=== PATIENT | male | born 1930 | race Caucasian/White ===

== ENCOUNTER 2017-08-31 01:00 | Inpatient (IN) | payer OTHER ==
[~2017-08-31] VITALS: Ht 170.2 cm; Wt 66.4 kg
[2017-08-31] VITALS (24 sets, daily range): BP systolic 67–146; BP diastolic 47–75
[2017-08-31] MEDS ORDERED: POTA10LI10 PO (01:12)
[2017-08-31] MEDS ORDERED: ATOR1TAB19 PO (01:12)
[2017-08-31] MEDS ORDERED: WARF05TA GT (01:12)
[2017-08-31] MEDS ORDERED: AMLO25TA PO (01:12)
[2017-08-31 01:32] LABS: BASO % 0.1 % (0.0-1.0); EOS % 0.1 % (0.0-3.0); IMMATURE GRANULOCYTE % 0.5 % (0-0); LYMPH # 0.6 10^3/uL (1.5-4.5); LYMPH % 4.4 % (24.0-44.0); MEAN CORPUSCULAR HEMOGLOBIN 31.1 pg (27.0-33.0); MEAN CORPUSCULAR HGB CONC 33.4 g/dl (32.0-36.5); MEAN CORPUSCULAR VOLUME 93.2 fl (80.0-96.0); MONO # 1.3 10^3/uL (0.0-0.8); MONO % 9.5 % (0.0-5.0); NEUTROPHILS # 11.4 10^3/uL (1.8-7.7); NEUTROPHILS % 85.4 % (36.0-66.0); PLATELET COUNT, AUTOMATED 120 10^3/uL (150-450); RED CELL DISTRIBUTION WIDTH 15.9 % (11.5-14.5); WHITE BLOOD COUNT 13.3 10^3/uL (4.0-10.0)
[2017-08-31 01:56] LABS: INR 2.75
[2017-08-31 02:11] LABS: ALBUMIN 2.9 GM/DL (3.2-5.2); ALBUMIN/GLOBULIN RATIO 0.83 (1.00-1.93); ALKALINE PHOSPHATASE 70 U/L (45-117); ALT/SGPT 29 U/L (12-78); ANION GAP 10 MEQ/L (8-16); AST/SGOT 79 U/L (7-37); BILIRUBIN,DIRECT 0.4 MG/DL (0.0-0.2); BILIRUBIN,TOTAL 1.1 MG/DL (0.2-1.0); BLOOD UREA NITROGEN 59 MG/DL (7-18); CARBON DIOXIDE LEVEL 22 MEQ/L (21-32); CHLORIDE LEVEL 110 MEQ/L (98-107); CREATININE FOR GFR 4.22 MG/DL (0.70-1.30); GLOMERULAR FILTRATION RATE 14.4 (>35); GLUCOSE, FASTING 104 MG/DL (83-110); SODIUM LEVEL 142 MEQ/L (136-145); T UPTAKE 35 % (33-40); TOTAL PROTEIN 6.4 GM/DL (6.4-8.2)
[2017-08-31] MEDS ORDERED: AMLO5TAB2 PO ×2 (02:15→03:12)
[2017-08-31] MEDS ORDERED: ATOR40TA75 PO ×2 (02:15→03:12)
[2017-08-31] MEDS ORDERED: VITA1CAP40 PO ×2 (02:15→03:12)
[2017-08-31] MEDS ORDERED: COUM2.5T17 PO (02:15)
[2017-08-31] MEDS ORDERED: CORE12.5 PO (02:15)
[2017-08-31] MEDS ORDERED: POTA20TA6 PO (02:15)
[2017-08-31 02:26] LABS: ABG PARTIAL PRESSURE CO2 26.5 mmHg (35.0-45.0); ABG PARTIAL PRESSURE O2 83.2 mmHg (75.0-100.0); ABG STANDARD HCO3 19.5 MEQ/L (22.0-26.0); ABG TOTAL CO2 17.8 MEQ/L (23.0-31.0); ABG pH (ARTERIAL) 7.425 UNITS (7.350-7.450)
[2017-08-31 02:27] LABS: POTASSIUM SERUM 5.5 MEQ/L (3.5-5.1)
[2017-08-31] MEDS ORDERED: NS 500 ML IV ONE ×2 (02:30→12:30)
[2017-08-31] MEDS ORDERED: SOD POLYSTYRENE SULFONATE SUSP 15 GM/60 ML UD PO ONE (02:45)
[2017-08-31] MEDS ORDERED: SOD POLYSTYRENE SULFONATE SUSP 30 GM/120 ML ENEMA PR ONE (03:00)
[2017-08-31] MEDS ORDERED: SOD POLYSTYRENE SULFONATE SUSP 15 GM/60 ML UD PR ONE (03:00)
--- NOTE | 2017-08-31 03:10 | REPUSA ---
CLINICAL HISTORY: Headache. TECHNIQUE: Multiple axial CT images were obtained through the brain without IV contrast material. COMMENTS: There is normal configuration of sella turcica. There are no intra or extra-axial collections. There is no mass effect or midline shift. There is no evidence of hematoma formation. No hydrocephalus is p resent. The ventricles are symmetrical. No abnormal calcifications are present. There is diffuse age-appropriate cerebellar and cerebral atrophy with proportionally dilated ventricl es and cortical sulci. There are bilateral periventricular and subcortical white matter hypolucencies compatible with mild c hronic microvascular disease. Otherwise, no significant focal abnormalities are seen either in the posterior fossa or supratentoria l compartment. IMPRESSION: 1. Age-appropriate cerebellar and cerebral atrophy. 2. Mild chronic microvascular disease. 3. No evidence of acute intracranial pathology. Thank you for your kind referral of this patient.
[2017-08-31] MEDS ORDERED: CARV12.5 PO (03:12)
[2017-08-31] MEDS ORDERED: POTA20TA PO (03:12)
[2017-08-31] MEDS ORDERED: WARF-23 PO (03:12)
[2017-08-31] MEDS ORDERED: PATIENT COMMENT (03:16)
[2017-08-31] MEDS ORDERED: ONDANSETRON 4MG/2ML VIAL (J2405) IV PRN (03:30)
--- NOTE | 2017-08-31 04:02 | HPEPDOC ---
[facility] Medical History & Physical Date of Admission Aug 31, 2017 Primary Care Physician: A Other Provider Dr. Sanjuana Brown ([place], [place]) Attending Physician: JAMIA RAMÍREZ MD History and Physical CHIEF COMPLAINT: altered mentation HISTORY OF PRESENT ILLNESS: [87 yo male presented to ED with altered mentation. Was down at home for unkown period of time. Lethargic and unable to get a detailed history. Unable to reach family member. Bedbugs noted at the time of his emergency room admission. According to ED staff he was found down at home by unresponsive. Pressures have been fine, finger stick blood sugar unremarkable. EtoH negative. He does appear dehydrated with elevated creatinine, some Rhabdomyolysis and lactic acidosis. Head CT reportedly negative. Hospitalist was called for admission. PAST MEDICAL HISTORY: Afib Hypertension Vitamin D def Hypokalemia Cataracts with prior surgery PAST SURGICAL HISTORY: Cataract surgery, rest is unable to ascertain SOCIAL HISTORY: ( was unavailable for history) FAMILY HISTORY: unsure ALLERGIES: Please see below. REVIEW OF SYSTEMS: unable to ascertain do to lethargy HOME MEDICATIONS: Please see below. PHYSICAL EXAMINATION: VITAL SIGNS: See below GENERAL APPEARANCE: lethargic but responded to sternal rub and says "leave me alone, don't do that". HEENT: PERRLA, however, there is some discrepancy between the pupillary size Right to left, may be related to prior cataract surgery. Throat clear. Neck supple, no JVD. CARDIOVASCULAR: Regular rate and rhythm. LUNGS: Clear to auscultation. ABDOMEN: Soft, nontender, nondistended, positive bowel sounds, masses or rebound. MUSCULOSKELETAL: No gross deformities. EXTREMITIES: No edema, no calf tenderness. NEUROLOGICAL: Unable to assess cranial nerves due to lethargy. Reflexes otherwise appear to be bilateral and normal. Babinski responses bilaterally. Skin: He has some excoriations with alert extremities and bedbugs have been noted. LABORATORY DATA: See below. IMAGING: Head CT noncontrast: 1. Age-appropriate cerebellar and cerebral atrophy. 2. Mild chronic microvascular disease. 3. No evidence of acute intracranial pathology. Chest x-ray: No infiltrate, no consolidation. However, some question to scarring versus pneumothorax of the right upper lobe. Chest CT is pending MICROBIOLOGY: Please see below. Impression: 87-year-old male presents to the emergency department with altered mental status, acute kidney injury, hyperkalemia, rhabdomyolysis, will need IV fluids. Further workup regarding his metabolic encephalopathy. His head CT is negative. CT of the chest is pending. No definitive signs of infection. However , would like to check a urinalysis. Problem list: 1.Metabolic Encephalopathy 2.Acute kidney injury. 3.Hyperkalemia. 4.Rhabdomyolysis. 5.Lactic acidosis. 6.Bed bugs 7.Afib 8.Hypertension 9.Vitamin D def 10.Hypokalemia 11.Cataracts with prior surgery Plan: Patient will be admitted PCU. Continue on telemetry. IV fluids FOR Acute kidney injury and avoid nephrotoxic drugs. Check renal ultrasound and serum/ urine osmolality and urine sodium to calculate FeNa. Repeat labs in the morning. Cycle cardiac enzymes. Check urinalysis, possibly urine culture, blood cultures. He does not have any records in the electronic medical records. And there is questions whether or not his right upper lobe on chest x-ray may demonstrate scarring versus pneumothorax. Check a stat CT without contrast. May need consider nephrology consult in the morning. DVT prophylaxis: He is therapeutic on Coumadin. Disposition: Anticipate he'll be here greater than 2 midnights Addendum: Chest CT without contrast demonstrates a moderate right sided pneumothorax with small right pleural effusion. Mild emphysematous bullae noted , perhaps cause of spontaneous pneumothorax. No rib fractures or signs of chest wall trauma. Patient currently hemodynamically stable, normal ABG and now on room air.Will consult with pulmonology/Critical Care team. Vital Signs Vital Signs Date Time Temp Pulse Resp B/P (MAP) Pulse Ox O2 Delivery O2 Flow Rate FiO2 08/31/17 02:12 08/31/17 02:12 Non-Rebreather 10.0 08/31/17 02:03 99.1 34 08/31/17 01:43 88 100 Laboratory Data Labs 24H Laboratory Tests 2 08/31/17 01:15: Immature Granulocyte % (Auto) 0.5H, White Blood Count 13.3H, Red Blood Count 3.66L, Hemoglobin 11.4L, Hematocrit 34.1L, Mean Corpuscular Volume 93.2, Mean Corpuscular Hemoglobin 31.1, Mean Corpuscular Hemoglobin Concent 33.4, Red Cell Distribution Width 15.9H, Platelet Count 120L, Neutrophils (%) (Auto) 85.4H, Lymphocytes (%) (Auto) 4.4L, Monocytes (%) (Auto) 9.5H, Eosinophils (%) (Auto) 0.1, Basophils (%) (Auto) 0.1, Neutrophils # (Auto) 11.4H, Lymphocytes # (Auto) 0.6L, Monocytes # (Auto) 1.3H, Eosinophils # (Auto) 0.0, Basophils # (Auto) 0.0 , Immature Granulocyte # (Auto) 0.1H, Nucleated Red Blood Cells % (auto) 0.0, Prothrombin Time 30.2H, Prothromb Time International Ratio 2.75, Activated Partial Thromboplast Time 49.0H, Anion Gap 10, Glomerular Filtration Rate 14.4L , Lactic Acid Level 2.9*H, Calcium Level 9.0, Aspartate Amino Transf (AST/SGOT) 79H, Alanine Aminotransferase (ALT/SGPT) 29, Alkaline Phosphatase 70, Total Bilirubin 1.1H, Direct Bilirubin 0.4H, Ammonia 29, Total Creatine Kinase 969H, Total Protein 6.4, Albumin 2.9L, Albumin/Globulin Ratio 0.83L, Thyroid Stimulating Hormone (TSH) 2.910, Free Thyroxine Index 2.8, Thyroxine (T4) 8.0, Triiodothyronine (T3) Uptake 35, Ethyl Alcohol Level < 0.003 08/31/17 02:03: Blood Gas Bicarbonate Standard 19.5L, Arterial Blood pH 7.425, Arterial Blood Partial Pressure CO2 26.5L, Arterial Blood Partial Pressure O2 83.2, Arterial Blood Total CO2 17.8L, Arterial Blood HCO3 17.0L, Arterial Blood Base Excess - 6.0L, Arterial Blood Oxygen Saturation 96.1 CBC/BMP Laboratory Tests 08/31/17 01:15 Red Blood Count 3.66 L, Mean Corpuscular Volume 93.2, Mean Corpuscular Hemoglobin 31.1, Mean Corpuscular Hemoglobin Concent 33.4, Red Cell Distribution Width 15.9 H, Neutrophils (%) (Auto) 85.4 H, Lymphocytes (%) (Auto ) 4.4 L, Monocytes (%) (Auto) 9.5 H, Eosinophils (%) (Auto) 0.1, Basophils (%) ( Auto) 0.1, Neutrophils # (Auto) 11.4 H, Lymphocytes # (Auto) 0.6 L, Monocytes # (Auto) 1.3 H, Eosinophils # (Auto) 0.0, Basophils # (Auto) 0.0 Home Medications Scheduled Amlodipine Besylate (Amlodipine Besylate) 5 Mg Tab, 5 MG PO DAILY Atorvastatin Calcium (Atorvastatin Calcium) 40 Mg Tab, 40 MG PO QHS Carvedilol (Carvedilol) 12.5 Mg Tab, 12.5 MG PO BID Ergocalciferol (Vitamin D) 50,000 Unit Cap, 50,000 UNIT PO ASDIRECTED TAKES ON SUNDAY MORNINGS Potassium Chloride (Klor-Con M20) 20 Meq Tabcr, 20 MEQ PO DAILY Warfarin Sod (Warfarin Sodium) 5 Mg Tab, 5 MG PO ASDIRECTED TAKES ON MONDAYS AND WEDNESDAYS at 1900 Warfarin Sod (Warfarin Sodium) 5 Mg Tab, 2.5 MG PO ASDIRECTED TAKES ON SUNDAYS, TUESDAYS, THURSDAYS, FRIDAYS AND SATURDAYS AT 1900 Scheduled PRN Albuterol Sulfate (Albuterol Sulfate) 2.5 Mg/3 Ml Nebu, 2.5 MG INH QID PRN for SHORTNESS OF BREATH Allergies Coded Allergies: No Known Allergies (Unverified , 08/31/17) FABIOLA SANCHEZ DO Aug 31, 2017 04:02
[2017-08-31 04:32] LABS: OSMOLALITY SERUM 317 MOSM/KG (280-301)
--- NOTE | 2017-08-31 04:40 | REPUSA ---
CLINICAL HISTORY: Pneumothorax. TECHNIQUE: Multiple axial CT images were obtained through the thorax without IV contrast material. COMMENTS: Moderate right pneumothorax. 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 Small right pleural effusion. Passive atelectatic airspace disease of the right lung. Bilateral basilar atelectatic pulmonary changes. Bilateral apical emphysematous pulmonary changes. There is no evidence of pleural or parenchymal-based mass. There is no evidence of hilar or mediastinal lymphadenopathy. The heart and great vessels are within normal limits. Gallstone is seen. There is bilateral peribronchial interstitial thickening suggestive of bronchitis. The visualized portions of the liver are of uniform attenuation without mass or defect. There is no i ntra or extrahepatic biliary ductal dilatation. The spleen is unremarkable. The visualized pancreas i s of normal contour and attenuation characteristics. There is no evidence of adrenal mass. The visual ized portions of the kidneys present no abnormalities. The bony structures are free of lytic or blastic lesions. IMPRESSION: Moderate right pneumothorax. Small right pleural effusion. Thank you for your kind referral of this patient.
[2017-08-31] MEDS: NS 1,000 ML IV SCH ×2 (05:00→10:03)
[2017-08-31] MEDS ORDERED: HEPARIN SOD (PORCINE) 5000 UNITS/ML VIAL SC SCH (06:00)
[2017-08-31] MEDS ORDERED: ALBU83IN INH (06:01)
[2017-08-31 06:08] LABS: CALCIUM OXALATE CRYSTALS SMALL
[2017-08-31] MEDS ORDERED: NS 1,000 ML IV ONE (06:45)
[2017-08-31] MEDS ORDERED: cefTRIAXone SOD 2 GM in D5W 50 ML IV SCH (07:00)
--- NOTE | 2017-08-31 07:42 | CCN ---
DATE OF SERVICE: 08/31/2017 Critical care time was 1 hour. This excludes all procedures. I was called by Dr. Barnes to see the patient in the intensive care unit for a pneumothorax. He had altered mental status, was found down for an unknown reason. On my arrival, the patient was awake, he could mumble, but was unable to give me any significant history. He has presumed metabolic encephalopathy with uremia. He has relative hypotension with a systolic blood pressure of 102 on my arrival to the room. I have asked him if he is able to eat at home, and he said "yes". I have asked him if he is coughing at home. He said "yes". All other speech is unintelligible. is unable to provide any history. History obtained from chart and admitting physician. Apparently, the patient was found down in his own feces, had elevated CK, no significant EKG abnormalities, and appears to be either spontaneous or traumatic pneumothorax on the right. PHYSICAL EXAMINATION: The patient is mostly hypothermic, temperature is 97.9 on my arrival to the room , pulse is 83, oxygen saturation is 94% on 2 liters. Respiratory rate of approximately 18-20. Blood pressure is 120/51 and its max most recently 102/48. GENERAL: The patient is laying in bed, sleepy at times, easily arousable to voice, unkempt with obvious hygiene neglect. HEENT: Sclera clear and anicteric. There is a pupillary defect on the right, which is chronic with some opacification. 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 Left eye reactive. Mucous membranes are dry. Tongue is midline. Oropharynx without erythema or exudate. Neck is supple. No tracheal deviation or mass. LYMPH: No cervical, supraclavicular, or axillary adenopathy. CARDIAC: Regular S1-S2. Currently he is paced with pacer in the left anterior chest wall without any surrounding erythema or exudate. PULMONARY: Decreased breath sounds throughout without rales, rhonchi or wheezes ; however, I hear good air entry on the right. No dullness to percussion. No accessory muscle use. He is barrel-chested. ABDOMEN: Scaphoid. No significant hepatosplenomegaly. No masses or hernia. EXTREMITIES: Significant muscle wasting. No cyanosis, clubbing or edema. SKIN: Some chronic venous stasis changes of the lower extremities, right greater than left. No rashes or jaundice. There is multiple excoriations. MUSCULOSKELETAL: Significant muscle wasting as mentioned above. No evidence of unilateral weakness. Laboratory evaluation shows a sodium of 142, potassium 5.5, chloride 110, bicarb of 22, BUN of 59, creatinine of 4.2 with a lactate of 2.9. Arterial blood gas shows a pH 7.43, pCO2 of 27, PaO2 of 83. White blood cell count is 13.3, hemoglobin 11.4, hematocrit 34.1, platelet count of 120 with an albumin of 2.9, CK is 969, INR is 2.75. EKG shows frequent PVCs, nonspecific ST abnormalities without any significant hyperacute ST segments. No signs of new myocardial infarction. Chest x-ray shows a pneumothorax on the right. Chest CT performed at 4:30 this morning shows a right pneumothorax and ascending aneurysm measuring 4.3 cm. There is dependant right infiltrate and on the right there is a pleural effusion and associated rib fracture. There is significant emphysema throughout both lung enriquez. Of note, on the chest CT the heart border is actually shifted to the side of the pneumothorax. Therefore, no significant tension. Pneumothorax remains mild to moderate on chest x-ray at 06:12 this morning. IMPRESSION: 1. Pneumothorax. I am not clear whether this was traumatic or spontaneous. There is associated dependent atelectasis versus infiltrate on the right lower lobe. There does appear to be a fairly flat level, which would suggest fluid possibly blood. There is associated rib fracture therefore I am favoring traumatic pneumothorax. Will continue to monitor. If there is no significant improvement, will consider placement of chest tube. At this point in time, the patient is on oxygen to help resorb the pneumothorax. No evidence of midline shift, in fact, it is the exact opposite, there is shifting of the cardiac silhouette to the right. 2. Dependent infiltrate with leukocytosis. Would consider the possibility of pneumonia and I have placed the patient on a ceftriaxone and azithromycin. 3. Renal failure. I have given the patient extra fluid due to his relative hypotension and elevated CK, which is likely from rhabdomyolysis from being down. 4. Relative hypotension. I have stopped his Norvasc and will continue to monitor. Will obtain a echocardiogram to look at cardiac output and also to evaluate for potential wall motion abnormalities. Monitor h/h for blood loss into chest cavity. 5. Severe hypoalbuminemia, probable chronic malnourishment. I have added thiamine. Will encourage p.o. intake when patient is less encephalopathic. A banana bag was ordered. 6. Found down for an unknown reason. Would continue to evaluate potential causes of his potential loss of consciousness, closely monitor for ventricular arrhythmias, hence the reason for the echocardiogram above. 7. Chronic anticoagulation high risk of bleeding. Will continue to monitor. At this point in time, would not add additional heparin onto his current Coumadin as his INR is at 2.75. I have therefore discontinued his heparin. 8. GI prophylaxis with Protonix until he is able to eat. Thank you for this consultation. Will continue to follow. BIBIANA
[2017-08-31 07:47] LABS: ALBUMIN 2.7 GM/DL (3.2-5.2); CALCIUM LEVEL 8.6 MG/DL (8.8-10.2); CREATININE FOR GFR 3.78 MG/DL (0.70-1.30); GLOMERULAR FILTRATION RATE 16.3 (>35); PHOSPHORUS LEVEL 4.9 MG/DL (2.5-4.9); POTASSIUM SERUM 5.1 MEQ/L (3.5-5.1)
--- NOTE | 2017-08-31 07:49 | REP ---
Portable chest, 01:37 a.m., single AP view, patient sitting: There are no comparisons. Lung enriquez are hyperinflated. There is a focal density above the right hemidiaphragm, acute versus chronic. Cardiac size is normal. The thoracic aorta is tortuous and possibly aneurysmal. Mediastinum and bony thorax unremarkable. There is a dual-chamber pacemaker. Impression: Hyperinflation. Focal density above the right hemidiaphragm, acute versus chronic. Tortuous thoracic aorta, possibly aneurysmal. Signed by Mehrdad Briscoe MD 08/31/2017 07:40 A
--- NOTE | 2017-08-31 07:51 | REP ---
Portable chest, 06:12 a.m., single AP view, patient sitting: Comparison is from 01:37 a.m. The density above the right hemidiaphragm has increased compatible with developing infiltrate. Otherwise, there is no interval change. Signed by Mehrdad Briscoe MD 08/31/2017 07:42 A
[2017-08-31 08:43] LABS: MAGNESIUM LEVEL 2.1 MG/DL (1.8-2.4)
[2017-08-31] MEDS: AZITHROMYCIN INJ 500 MG, VIAL MATE ADAPTER 1 EACH in D5W 250 ML IV SCH (08:45)
[2017-08-31] MEDS ORDERED: CARVedilol 12.5 MG TAB PO SCH (09:00)
[2017-08-31] MEDS ORDERED: MULTIVITAMIN -ADULT INJECTION 10 ML, THIAMINE INJection 100 MG, FOLIC ACID 1 MG in NS 1... IV ONE (09:00)
[2017-08-31] MEDS ORDERED: amLODIPine 5 MG TAB PO SCH (09:00)
[2017-08-31] MEDS ORDERED: ATORVASTATIN 20 MG TAB PO SCH (09:00)
[2017-08-31] MEDS: DOCUSATE SODIUM 100 MG CAP PO SCH ×2 (09:08→21:00)
[2017-08-31] MEDS ORDERED: D5W/0.9% SODIUM CHLORIDE 1,000 ML IV SCH (11:00)
[2017-08-31] MEDS: PIPERACILLIN/TAZOBACTAM SOD 2.25 GM in D5W 50 ML IV SCH ×2 (13:06→22:07)
--- NOTE | 2017-08-31 13:23 | CR ---
DATE OF CONSULTATION: 08/31/2017 REQUESTING PHYSICIAN: Dr. Vinny Martinez CONSULTING PHYSICIAN: Dr. Arevalo REASON FOR CONSULTATION: Acute renal failure. Hyperkalemia. Rhabdomyolysis. CHIEF COMPLAINT: The patient was brought to the emergency room with metabolic encephalopathy. NOTE: History was obtained from patient's chart and from the medical team. The patient was unable to provide any reliable history. HISTORY OF PRESENT ILLNESS: Mr. Catrachito Richards is an 87-year-old male with past medical history of hypertension, history of atrial fibrillation, pacemaker placement in the past, who was brought to the emergency room with confusion, altered mental status. He was found at his home for an unknown period of time. He was down on the floor. He was lethargic. He was unable to get up from the floor. As reported in documentation, the patient was found in his own urine and feces and he was also found to have bed bugs on arrival in the emergency room. The patient was found to be severely dehydrated with volume depletion, acute renal failure, along with hyperkalemia and evidence of rhabdomyolysis with a CPK level of 969. The patient also had lactic acidosis on arrival. He was oliguric. I saw and examined the patient today morning in the intensive care unit (ICU). He has received IV fluid boluses. The patient is slightly more awake. He was oriented times one. He was able to follow some commands. PAST MEDICAL HISTORY: As reported in documentation, the patient has history of hypertension, atrial fibrillation. PAST SURGICAL HISTORY: Patient has history of cataract surgery in the past. Patient has a pacemaker. The rest of the surgical history I was unable to obtain. ALLERGIES: No known drug allergies. FAMILY HISTORY: Unknown family history at this time. SOCIAL HISTORY: The patient lives at home with his . His is also very debilitated. There is no history of illicit drug abuse or alcohol abuse. REVIEW OF SYSTEMS: I was unable to get any reliable review of systems from the patient who was very obtunded and lethargic, only knows his name at this time, but he was not in any apparent respiratory distress. PHYSICAL EXAMINATION: GENERAL: The patient is obtunded, but arousable. He is oriented times one. Follows some commands. VITAL SIGNS: Temperature 98.9 degrees Fahrenheit. Blood pressure 103/66. Pulse 74. Respiratory rate 21. Saturating 97% on 4 liters nasal cannula. INTAKE AND OUTPUT: Urine output recorded so far is 90 mL since overnight. HEAD AND NECK EXAM: Patient's eyes are closed. He is blind of right eye with fibrosis. Mucous membranes are dry. Neck is supple. There is no jugular venous distention (JVD). CARDIOVASCULAR: S1, S2, irregularly irregular. He has a paced rhythm. RESPIRATORY: Chest is clear to auscultation bilaterally. Bilateral equal air entry. No rales or rhonchi. ABDOMEN: Soft. Positive bowel sounds. Nontender. No ascites. No organomegaly. GENITOURINARY: Patient has an indwelling Licona catheter at this time. I see some urine coming out in the Licona tube now which is pale yellow in color. MUSCULOSKELETAL: No clubbing or cyanosis. Pulses are 2+. No edema of the extremities. The patient does have some erythema of the left leg. CENTRAL NERVOUS SYSTEM: Patient is oriented times one. Follows some commands. He is currently obtunded and has some metabolic encephalopathy. LAB REVIEW: CBC showed a WBC of 13.3, hemoglobin 11.4 and platelets of 120. INR is 2.7. Urinalysis showed it was cloudy with 2+ protein, 3+ blood, some ketones , amorphous sediment in the urine. ABG done today morning showed a pH of 7.4, pcO2 of 26, pO2 83, bicarbonate 17, oxygen saturation 96%. BMP today morning showed sodium 146, potassium 5.1, chloride 114, bicarbonate 19, BUN 65, creatinine 3.7, lactic acid 2.5, calcium 8.6, albumin 2.7, CK-MB has decreased to 832, troponin 0.11. Toxicology showed ethyl alcohol level was negative. MICROBIOLOGY: Urine culture is pending. IMAGING: CT of chest showed moderate right pneumothorax, small right pleural effusion. CT scan of the head showed age appropriate cerebellar and cerebral atrophy. CURRENT INPATIENT MEDICATIONS: Patient's medications are all reviewed by me. He is on banana bag and he has been started on D5 1/2 normal saline at 80 mL/hr. He is on empiric Zosyn 2.25 grams IV every 8 hours and Zithromax 500 mg every 24 hours. I have stopped the amlodipine and Coreg at this time. Statin was also stopped because of rhabdomyolysis. The patient got a dose of Kayexalate overnight. He is on Coumadin 5 mg on Sunday and Sunday and 2.5 mg on rest of the days. ASSESSMENT: 87-year-old male with past medical history of hypertension, atrial fibrillation, status post pacemaker admitted to the ICU at this time because of metabolic encephalopathy, right sided pneumothorax, acute renal failure, hyperkalemia, and systemic inflammatory response syndrome. PLAN: 1. Systemic inflammatory response syndrome. Patient has leukocytosis, lactic acidosis. He was found in his urine and feces. Continue the empiric IV antibiotic coverage. Dose is adequate for acute renal failure. Continue aggressive IV fluid hydration. Monitor intake and output. 2. Acute renal failure. Most likely secondary to systemic inflammatory response syndrome (SARS),dehydration and Volume depletion. Continue aggressive IV fluid hydration. Patient's urine output is improving now. No need of hemodialysis at this time. Electrolytes are within the acceptable limits. 3. Hyperkalemia. Patient was already given Kayexalate overnight. Potassium level is 5.1 which is acceptable. No need of further Kayexalate administration. Improvement in renal function and IV fluid hydration will further help improve hyperkalemia. 4. Hypernatremia. It is secondary to aggressive fluid hydration with normal saline. IV fluids have already been changed to D5 1/2 normal saline. Sodium level is expected to improve with 1/2 normal saline. 5. Metabolic acidosis. Metabolic acidosis is secondary to acute renal failure. Bicarbonate level is 19. No need of IV bicarbonate administration at this time. Acidosis is expected to improve with improvement in renal function and once the lactic acid improves. 6. Rhabdomyolysis. Patient has mild elevation of CPK. It is secondary to fall. Patient was on the floor for many hours. Continue IV fluid hydration. CPK level is coming down. Avoid statins at this time. 7. Protein calorie malnutrition. Patient's albumin level is 2.7. Continue IV D5. Once the patient is awake and alert, he can be started on oral feeds. 8. History of chronic atrial fibrillation. Patient has a paced rhythm at this time. INR is therapeutic at 2.7. Continue home dose of Coumadin. Thank you for involving us in the care of this patient. We shall be happy to follow the patient along with you tomorrow morning. MTDD
[2017-08-31 13:56] LABS: ALBUMIN 2.4 GM/DL (3.2-5.2); CALCIUM LEVEL 8.6 MG/DL (8.8-10.2); CREATININE FOR GFR 3.4 MG/DL (0.70-1.30); GLOMERULAR FILTRATION RATE 18.4 (>35); PHOSPHORUS LEVEL 4.5 MG/DL (2.5-4.9); POTASSIUM SERUM 4.4 MEQ/L (3.5-5.1)
[2017-08-31] MEDS ORDERED: WARFARIN SOD 2.5 MG TAB PO SCH (17:00)
[2017-08-31] MEDS: WARFARIN SOD 2.5 MG TAB PO SCH (18:04)
[2017-08-31] MEDS: D5W/0.45% SODIUM CHLORIDE 1,000 ML IV SCH (23:30)
[2017-09-01] VITALS (19 sets, daily range): BP systolic 86–150; BP diastolic 56–84
[2017-09-01 05:08] LABS: MEAN CORPUSCULAR HEMOGLOBIN 30.3 pg (27.0-33.0); MEAN CORPUSCULAR HGB CONC 33.1 g/dl (32.0-36.5); MEAN CORPUSCULAR VOLUME 91.5 fl (80.0-96.0); PLATELET COUNT, AUTOMATED 103 10^3/uL (150-450); RED CELL DISTRIBUTION WIDTH 16.2 % (11.5-14.5); WHITE BLOOD COUNT 8.1 10^3/uL (4.0-10.0)
[2017-09-01 05:21] LABS: INR 2.52
[2017-09-01 05:29] LABS: ALBUMIN 2.4 GM/DL (3.2-5.2); CREATININE FOR GFR 2.61 MG/DL (0.70-1.30); POTASSIUM SERUM 3.8 MEQ/L (3.5-5.1)
[2017-09-01] MEDS: PIPERACILLIN/TAZOBACTAM SOD 2.25 GM in D5W 50 ML IV SCH ×3 (05:58→22:02)
--- NOTE | 2017-09-01 06:41 | ECGEPIP ---
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
--- NOTE | 2017-09-01 07:46 | ECHO ---
DATE OF PROCEDURE: 08/31/2017 AGE: 87 GENDER: Male REFERRING PHYSICIAN: Dr. Parrish. HEIGHT: 67 inches. WEIGHT: 134 pounds. BODY SURFACE AREA: 1.71 sq m. INPATIENT: Intensive care unit (ICU) Room 3201. INDICATION: Abnormal EKG. MEASUREMENTS: 2D MEASUREMENTS: RV - 4.0 cm LV- 4.6 cm Septum - 1.1 cm Posterior wall - 1.0 cm Aortic root - 3.7 cm LA - 3.2 cm LVEF - 65% DOPPLER MEASUREMENTS: AV - 1.0 m/s LVOT - 0.8 m/s LVOT diameter - 2.3 cm MV-E: 49 A: 75 EA ratio 0.7 Early mitral deacceleration time - 285 ms RVSP - 38 mmHg IVC - 1.9 cm COMMENTS: Normal sinus rhythm with narrow QRS complexes alternating with ventricular paced beats with left bundle branch block QRS configuration. Technically challenging study in light of the patient's body habitus but some diagnostically useful information was still obtained. Normal cardiac chamber sizes. Normal LV wall thickness. On real-time imaging from the parasternal and apical projections, wall motion was symmetrical and normal to hyperkinetic except for ventricular paced complexes associated with a paradoxical septal motion abnormality and drop in ejection fraction to 50%. Mildly thickened mitral valvular apparatus but normal leaflet thickness and excursion with no posterior systolic buckling. Three equal size aortic cusps with normal cusp separation. Normal aortic root size. No apparent pericardial effusion. Pacing leads could be visualized traversing right heart structures but no separate intracardiac mass. Color flow Doppler study taken from the parasternal and apical projection showed trace aortic, very mild mitral and moderate tricuspid insufficiency. Guided continuous wave Doppler of his aortic valve showed a normal peak systolic velocity against LV outflow tract obstruction. Pulsed and continuous wave Doppler of his LV inflow tract taken from the apical four-chamber projection showed normal diastolic filling velocities against mitral stenosis. There was more prominent late diastolic/atrial dependent filling pattern. A degree of diastolic dysfunction was further confirmed by a prolonged early mitral deceleration time. We could not clearly visualize his pulmonary trunk or pulmonary valve. Guided continuous wave Doppler of his tricuspid valve allowed our estimation of his right ventricular systolic pressure (at least mildly increased). His inferior vena cava was normal size with slightly reduced respiratory collapse suggesting a slightly elevated central venous pressure. CONCLUSIONS: Somewhat technically challenging study in light of the patient's body habitus. Normal left ventricular size and wall thickness and wall motion, except for when there was right ventricular pacing which is associated with paradoxical septal motion and reduction in ejection fraction. Normal left atrial size but Doppler evidence of an impairment of LV diastolic relaxation. Right heart chamber sizes upper limits of normal with normal wall motion with Doppler evidence of at least mild pulmonary hypertension. Normal IVC size but slightly reduced respiratory collapse against a slightly elevated central venous pressure. Mild aortic valvular sclerosis without stenosis and only trace insufficiency. Mild mitral annular calcification with very mild insufficiency.
[2017-09-01] MEDS: AZITHROMYCIN INJ 500 MG, VIAL MATE ADAPTER 1 EACH in D5W 250 ML IV SCH (08:00)
[2017-09-01] MEDS: ALBUTEROL SULFATE 2.5 MG/0.5 ML INH NEB SOLN NEB SCH ×4 (08:00→19:22)
--- NOTE | 2017-09-01 09:44 | REP ---
AP PORTABLE CHEST: 09/01/2017. Comparison: Portable chests 08/31/2017, CT chest 08/31/2017. Clinical history: Follow-up right pneumothorax, pleural effusion. Findings. Dual lead pacer over the left upper chest with leads in the right atrium and right ventricle noted. Left lung is clear. The right lung shows consolidative atelectasis or infiltrate and a small effusion with hydropneumothorax at the right base. There is an apical air gap up to 3 cm. On yesterday's portable chest, it was about 2.8 cm, so not significantly larger. Tortuous calcified aorta with aneurysmal dilatation, unchanged. Impression: 1. Right-sided hydropneumothorax unchanged from yesterday with a somewhat increased basilar atelectasis or consolidation and fluid representing effusion with that pneumothorax. Left lung well inflated and clear. Signed by Nikunj Cruz MD 09/01/2017 07:18 P
[2017-09-01] MEDS: DOCUSATE SODIUM 100 MG CAP PO SCH ×2 (12:11→22:02)
--- NOTE | 2017-09-01 12:13 | CCN ---
DATE: 09/01/2017 HISTORY OF PRESENT ILLNESS: Overnight the patient had no complaints. His mentation is slightly better this morning, although he is only able to say "yeah" to questions. When asked if he is doing better he says "yeah." He offers no other verbal communication. He has some airway rattling that can be heard from the doorway. Urine output has increased. PHYSICAL EXAMINATION: Temperature is 97.5, pulse is 56, respiratory rate is 23, blood pressure is 107/59, oxygen saturations 94% on 3.0 liters. Input and output 3792 in and 490 out, net positive 3302 over the past 24 hours. GENERAL: Patient is awake. No significant verbal communication. Therefore I am not able to assess orientation. It is unclear what his baseline mentation is. HEENT: Sclerae clear and anicteric. Pupils equal and react to light. Mucous membranes are moist. Tongue is midline. Neck is supple. No tracheal deviation. PULMONARY: Decreased breath sounds bilaterally but present. There is diffuse rhonchi throughout both lung enriquez. No expiratory wheeze but there is a prolonged expiratory phase. ABDOMEN: Soft, nontender, nondistended. No hepatosplenomegaly, scaphoid. No discernible bruits. EXTREMITIES: No cyanosis, clubbing or edema. MUSCULOSKELETAL: Significant muscle wasting. No mass or effusion. LABORATORY EVALUATION: Shows a white count of 8.1, hemoglobin 10.0, hematocrit 30.2, platelet count of 103. Sodium is elevated at 150, creatinine is 2.6. Chest x-ray shows no significant improvement in the minimal pneumothorax. No significant increase in the pleural effusion, which I assume has blood. IMPRESSION AND PLAN: 1. Traumatic pneumohydrothorax. Multiple rib fractures seen on CT. Promote mucociliary clearance with nebulized therapy. This was added to his regimen today. 2. Anemia. No indication for transfusion. No obvious bleeding. 3. Emphysema with hypoxia, acute in nature. Recommend continuing oxygen to help with the pneumothorax resorption. Nebulizers added this morning. Would avoid PEP therapy at this point in time because of the pneumothorax.
[2017-09-01 12:23] LABS: IONIZED CALCIUM 4.7 MG/DL (4.5-5.3)
[2017-09-01 12:45] LABS: CALCIUM LEVEL 8.5 MG/DL (8.8-10.2); CREATININE FOR GFR 2.6 MG/DL (0.70-1.30); GLOMERULAR FILTRATION RATE 25.1 (>35); POTASSIUM SERUM 3.6 MEQ/L (3.5-5.1)
[2017-09-01] MEDS: WARFARIN SOD 2.5 MG TAB PO SCH (17:06)
[2017-09-01] MEDS: D5W/0.45% SODIUM CHLORIDE 1,000 ML IV SCH (17:07)
--- NOTE | 2017-09-01 17:12 | IPNPDOC ---
Text Note Date of Service The patient was seen on 09/01/17. NOTE Subjective: Pt states he is feeling well. States he was dizzy and lightheaded, fell backwards while trying Objective: Vitals: (see below) General: No acute distress, laying comfortably in bed. Appears disheveled HEENT: Moist mucous membranes. Neck: No JVD or lymphadenopathy Cardiac: RRR, No murmurs Pulm: Coarse crackles right lower base. No wheezing, rhonchi Abd: NT/ND + BS Ext: No edema or cyanosis. Does have blisters at the lateral region of his left lower extremity thigh region adjacent to his fall. Distal pulses intact. Following commands, moving all extremities. Answering questions appropriately. Labs (see below) Images: X-ray 09/01/17 Impression: 1. Right-sided hydropneumothorax unchanged from yesterday with a somewhat increased basilar atelectasis or consolidation and fluid representing effusion with that pneumothorax. Left lung well inflated and clear. CT Chest 08/31/17 IMPRESSION: Moderate right pneumothorax. Small right pleural effusion. Renal u/s pending Assessment/Plan 1. Acute hydropneumothorax- status post fall. Currently being managed by Dr. Parrish, with no notable indication for chest tube at this time. 2. Acute renal failure- likely secondary to rhabdomyolysis as well as prerenal. FeNa <1. Improving since admission. Continue IV fluids. Appreciate nephrology input. 3. Rhabdomyolysis improving with IV fluids. 4. Hypernatremia secondary to IV fluids, and decreased by mouth intake. Change to D5 W. 5. SIRS + ?right lower lobe aspiration pneumonia- on Zosyn. Blood cultures pending. 6. Metabolic encephalopathy likely secondary to the above, slightly improving 7. Lactic acidosis- improving 8. History of atrial fibrillation on Coumadin 9. History of bedbugs 10. Hypertension- controlled continue current meds 11. Chronic anemia- hemoglobin stable we'll continue to monitor. DVT prophy: On Coumadin Prognosis guarded. VS,Fishbone, I+O VS, Fishbone, I+O Laboratory Tests 09/01/17 04:19 Red Blood Count 3.30 L, Mean Corpuscular Volume 91.5, Mean Corpuscular Hemoglobin 30.3, Mean Corpuscular Hemoglobin Concent 33.1, Red Cell Distribution Width 16.2 H, Anion Gap 9 09/01/17 12:14 Calcium Level 8.5 L Vital Signs Date Time Temp Pulse Resp B/P (MAP) Pulse Ox O2 Delivery O2 Flow Rate FiO2 09/01/17 16:00 97.7 66 18 86/57 (67) 92 Nasal Cannula 2.0 I&O- Last 24 Hours up to 6 AM 09/02/17 06:00 Intake Total 1290 ml Output Total 580 ml Balance 710 ml JAMIA RAMÍREZ MD Sep 01, 2017 17:12
[2017-09-02] VITALS: BP 143/88
[2017-09-02] MEDS: D5W/0.45% SODIUM CHLORIDE 1,000 ML IV SCH (00:30)
[2017-09-02 02:00] VITALS: BP 152/90
[2017-09-02 04:00] VITALS: BP 132/84
[2017-09-02 04:41] LABS: MEAN CORPUSCULAR HEMOGLOBIN 30.7 pg (27.0-33.0); MEAN CORPUSCULAR HGB CONC 33.6 g/dl (32.0-36.5); MEAN CORPUSCULAR VOLUME 91.2 fl (80.0-96.0); PLATELET COUNT, AUTOMATED 100 10^3/uL (150-450); WHITE BLOOD COUNT 7.4 10^3/uL (4.0-10.0)
[2017-09-02 04:50] LABS: INR 2.6
[2017-09-02 04:56] LABS: ALBUMIN 2.4 GM/DL (3.2-5.2); CALCIUM LEVEL 8.1 MG/DL (8.8-10.2); CREATININE FOR GFR 1.86 MG/DL (0.70-1.30); GLOMERULAR FILTRATION RATE 36.9 (>35); POTASSIUM SERUM 3.6 MEQ/L (3.5-5.1)
[2017-09-02 05:16] LABS: PHOSPHORUS LEVEL 2.2 MG/DL (2.5-4.9)
[2017-09-02] MEDS: PIPERACILLIN/TAZOBACTAM SOD 2.25 GM in D5W 50 ML IV SCH ×2 (06:00→14:04)
[2017-09-02] MEDS: DOCUSATE SODIUM 100 MG CAP PO SCH ×2 (07:15→21:27)
[2017-09-02] MEDS: ALBUTEROL SULFATE 2.5 MG/0.5 ML INH NEB SOLN NEB SCH ×4 (07:52→20:00)
[2017-09-02 08:00] VITALS: BP 131/63
[2017-09-02] MEDS ORDERED: POTASSIUM PHOSPHATE INJ 15 MMOL in D5W 250 ML IV ONE (10:00)
[2017-09-02] MEDS: WARFARIN SOD 2.5 MG TAB PO SCH (17:00)
--- NOTE | 2017-09-02 17:07 | IPNPDOC ---
Text Note Date of Service The patient was seen on 09/02/17. NOTE Subjective: 87 years old male with PMH of chronic afib, HTN, vitamin D def, hypokalemia presented with fall and altered mentation. Patient seen and examined at bedside. Patient is much more responsive today was able to follow command and stated he wanted to leave, still not sure why he was in the hospital. Per nurse, he was trying to pull out his mcintyre and he had pulled out IV earlier in the day. Denies any chest pain, sob, abdominal pain, nausea, vomiting, diarrhea, constipation, blood in urine or stool. Denies any other current new complaints. Called patient's , she stated patient has been confused for a long time and more confused for the past few weeks. However , she is unable to come into hospital right now, she might try to come in next week. Objective: Vitals: (See below) General: Patient is a elderly male looked appropriate for his stated age laying comfortably in bed, AAOx3, not in apparent distress, with head elevated at 30 degrees HEENT: Normal cephalic atraumatic, Extraocular motion intact, mucosal membrane moist, neck supple, no neck lymphadenopathy Cardio: irregular heart beat, no murmurs Pulm: Reduced b/l, poor respiratory effort Abdomen: + bowel sounds, soft, none tender, none distended, no peritoneal signs , no ecchymosis, no masses that were palpable Ext: No edema, clubbing, or cynosis Skin: Warm and dry Neuro: Cranial Nerve 2 through 12 intact, No focal neurological deficit Labs ( See below) Most significantly: phosphorus 2.2, albumin 2.4 Images/Procedures: Portable CXR: 09/01/17 - Right sided hydropneumothorax unchagned Assessment and Plan: Acute hydropneumothorax - s/p fall with multiple rib fractures - Dr. Parrish from pulmonology has been consulted, will follow her recommendation , no chest tube for now - c/w O2 Confusion suspect dementia vs intracranial etiology - repeat CT - stated he was confused before but worse now - Sitter for prevent interrupting medical therapy and harming himself Acute renal failure 2/2 rhabdo and prerenal - FeNa <1 - Dr. Arevalo from nephrology has been consulted, will follow his recommendation, c/w IVF Rhabdo - IVF Hypernatremia 2/2 IVF and poor PO intake - D5W 1/2 NS SIRS - ? RLL aspiration pneumonia on zosyn - Blood Cx pending Metabolic encephalopathy 2/2 to above - slight improvement Lactic acidosis 2/2 prerenal vs infection - improving Hx of afib not in RVR - c/w coumadin Bedbugs found on admission - contact precaution HTN - c/w home meds Chronic anemia - continue to monitor DVT prophylaxis: Coumadin Fluid, Electrolytes, Nutrition: Pureed diet, nectar thickened liquid Code: Need to discuss with patient and his family Disposition: Guarded GME ATTESTATION My preceptor for this patient encounter was physically present in the building during the encounter and was fully available. As needed, all aspects of the patient interview, examination, medical decision making process, and medical care plan development were reviewed and approved by the preceptor. Preceptor is aware and concurs with the plan as stated in the body of this note and will attest to such by his/her cosignature. VS,Fishbone, I+O VS, Fishbone, I+O Laboratory Tests 09/01/17 12:14 Calcium Level 8.5 L 09/02/17 04:06 Red Blood Count 3.62 L, Mean Corpuscular Volume 91.2, Mean Corpuscular Hemoglobin 30.7, Mean Corpuscular Hemoglobin Concent 33.6, Red Cell Distribution Width 16.0 H, Anion Gap 6 L Vital Signs Date Time Temp Pulse Resp B/P (MAP) Pulse Ox O2 Delivery O2 Flow Rate FiO2 09/02/17 08:00 98.1 56 20 131/63 (85) 99 Room Air 09/01/17 17:57 2.0 I&O- Last 24 Hours up to 6 AM 09/03/17 06:00 Intake Total 80 ml Output Total 275 ml Balance -195 ml XIMENA ANSARI DO Sep 02, 2017 09:48
[2017-09-02 22:00] VITALS: BP 130/64
[2017-09-03 06:00] VITALS: BP 124/71
--- NOTE | 2017-09-03 06:16 | IPN ---
DATE: 09/02/2017 Mr. Richards is unable to give intelligible answers, occasionally jokes around. He is attempting to get out of bed and is confused, is disoriented to place and time. When I asked how he is feeling, he states with his fingers. I am unable to get any pertinent medical information from the patient at this point in time. The patient is eating well. Currently on a mechanical soft diet PHYSICAL EXAMINATION: Vital Signs: Temperature is 98.1, pulse is 56. He does not appear to be significantly agitated. Respiratory rate is 20. Blood pressure is 131/63 with 99% oxygen on room air. HEENT: Sclerae clear and anicteric. Pupils equal, react to light. Mucous membranes are moist without lesions. Tongue is midline. Neck is supple. No tracheal deviation or mass. Cardiac: Irregular, S1, S2 without audible murmur, rub or gallop. No elevated jugular venous pressure (JVP). No systemic edema. Pulmonary: Decreased breath sounds throughout with prolonged expiratory phase. No dullness to percussion. No accessory muscle use. I hear good breath sounds bilaterally. Abdomen: Soft, nontender, nondistended. No hepatosplenomegaly. No masses or hernia. Extremities: No cyanosis, clubbing or edema. Skin: No rashes, jaundice or bruising. Laboratory evaluation shows an INR of 2.6. Sodium 146, potassium 3.6, chloride 116, bicarbonate of 24, BUN of 34, creatinine of 1.86 with a calcium of 8.1, phosphorus of 2.2 and albumin of 2.4. IMPRESSION: Traumatic pneumothorax in an 87-year-old male. Currently oxygen saturations are normal. No need for chest tube at this point in time. Would continue conservative management, especially given his physical condition. At this point in time, he does not have any evidence that he will develop a tension pneumothorax and therefore, can be transferred to the floor. He has no evidence of bleeding from his recent rib fractures and trauma. Would adjust his Coumadin as he has recently been on antibiotics. His INR this morning is 2.6. Therefore, predictively much more elevated in the next few days. This patient is unlikely to be able to care for himself at home. He has had no visitors since he has been in the hospital that I am aware of. I believe he will likely be a candidate for placement as he was fairly disheveled and unkempt on presentation. At this point in time, I do not believe he would be able to make good decisions on his own. Social service consultation should be obtained.
[2017-09-03 06:24] LABS: MEAN CORPUSCULAR HEMOGLOBIN 30.1 pg (27.0-33.0); MEAN CORPUSCULAR HGB CONC 33.3 g/dl (32.0-36.5); MEAN CORPUSCULAR VOLUME 90.2 fl (80.0-96.0); PLATELET COUNT, AUTOMATED 101 10^3/uL (150-450); RED CELL DISTRIBUTION WIDTH 15.9 % (11.5-14.5); WHITE BLOOD COUNT 6.6 10^3/uL (4.0-10.0)
--- NOTE | 2017-09-03 06:24 | IPN ---
DATE: 09/01/2017 SUBJECTIVE: Mr. Richards is seen this morning on his bedside in intensive care unit. He was brought to emergency room due to unresponsiveness and he was very dehydrated and covered in feces and bedbugs. This morning, he is awake and sitting in his bed trying to feed him his lunch. The patient does answer simple questions with yes or no. PHYSICAL EXAMINATION: Temperature 98.6 degrees Fahrenheit, heart rate 72 per minute and respiratory rate 20 per minute. Blood pressure 112/64 mmHg and oxygen saturation 100%. Intake and output records from yesterday showed total intake 3792 and output 490 mL. Today he has intake of about 1300 and output 1100 so far. His head is atraumatic. Neck is supple and without jugular venous distention (JVD) or thyroid enlargement. Heart sounds are regular and lungs sound clear to auscultation bilaterally. Abdomen is soft and nontender. Extremities have no cyanosis or clubbing. Musculoskeletal system shows poor personal hygiene, particularly of his feet, and his toenails are quite large and in need for trimming. Neurologically he is awake and able to answer simple questions. LABORATORY DATA: Today's labs show WBC count 8.1, hemoglobin 10.0 and hematocrit 30.2. Platelets 103. Sodium 150 and potassium 3.6. BUN 50 and creatinine 2.60. Glucose 110, calcium 8.5 and ionized calcium is 4.7. PROBLEMS: 1. Acute renal failure. Most likely this was due to dehydration. The patient requires intravenous (IV) fluid and I would suggest to give him hypotonic fluid as he is still hypernatremic. His oral intake is gradually improving. 2. Hypernatremia. Sodium level is still 150. I would suggest to use dextrose 5% in water (D5W) or half-normal saline for IV fluid. The patient should also be encouraged for oral intake of fluids. 3. Protein calorie malnutrition. This is chronic and likely to improve over a period of time. He is likely to require assistance with feeding as I observed him not doing well. 4. Rhabdomyolysis. He did have mild rhabdomyolysis and his creatine phosphokinase (CPK) level was only 527 yesterday. I do not feel that there is any risk for acute renal failure from mildly elevated CPK. The patient should be hydrated and his CPK level is likely to improve over next 24-48 hours.
[2017-09-03] MEDS: ALBUTEROL SULFATE 2.5 MG/0.5 ML INH NEB SOLN NEB SCH ×4 (06:30→19:16)
[2017-09-03 06:38] LABS: INR 2.35
[2017-09-03 06:43] LABS: ALBUMIN 2.3 GM/DL (3.2-5.2); CALCIUM LEVEL 7.8 MG/DL (8.8-10.2); CREATININE FOR GFR 1.34 MG/DL (0.70-1.30); GLOMERULAR FILTRATION RATE 53.9 (>35); PHOSPHORUS LEVEL 2.2 MG/DL (2.5-4.9); POTASSIUM SERUM 4.1 MEQ/L (3.5-5.1)
--- NOTE | 2017-09-03 08:08 | REP ---
RENAL ULTRASOUND: Real-time sonographic evaluation of the kidneys are performed. The kidneys are normal in size and echotexture, right kidney measuring 9.0 x 3.9 x 4.1 cm and left kidney 9.2 x 4.0 x 4.2 cm. There is no hydronephrosis or renal mass. Incidental note is made of a right pleural effusion. Licona catheter is seen in the urinary bladder. IMPRESSION: No hydronephrosis. Right pleural effusion. Signed by Mehrdad Cobos MD 09/04/2017 04:38 P
[2017-09-03] MEDS: DOCUSATE SODIUM 100 MG CAP PO SCH ×2 (09:12→20:36)
--- NOTE | 2017-09-03 09:58 | REP ---
CT Head without contrast HISTORY: Altered mental status COMPARISON: 08/31/2017 Areas of decreased attenuation are present in the periventricular white matter. This represents small-vessel ischemic disease. There is no intraparenchymal hemorrhage, acute infarct, mass or midline shift. The ventricular system and cortical sulci as well as subarachnoid space in the posterior fossa are dilated consistent with moderate volume loss. There is no extra cerebral collection. There is no fracture. The visualized sinuses are clear. IMPRESSION: 1. Small vessel ischemic disease. 2. Moderate volume loss. Signed by Greg Buckley MD 09/03/2017 09:49 A
[2017-09-03] MEDS ORDERED: SODIUM PHOSPHATE INJ 20 MMOL in D5W 250 ML IV ONE (11:00)
--- NOTE | 2017-09-03 12:11 | IPN ---
DATE OF VISIT: 09/02/2017 Mr. Richards is seen this morning on his bedside. He is sleepy but arousable. He denies any nausea, vomiting, fever or chills. On physical exam, temperature 98.1 degrees Fahrenheit, heart rate 70 per minute and respiratory rate 20 per minute. Blood pressure 131/63 mmHg and oxygen saturation 99% on room air. Intake and output records from yesterday showed total intake 1730 and output 1335 mL. His head is atraumatic. Neck is supple and without jugular venous distention (JVD) or thyroid enlargement. Hearts sounds are regular and lungs with few basilar chronic crepitations. Abdomen soft and nontender, and bowel sounds are normal. Extremities have no cyanosis or clubbing. His personal hygiene is poor. He has a significantly large bilateral toenails. Neurologically, he is awake and able to answer simple questions. Today's labs show WBC count 7.4, hemoglobin 11.1 and hematocrit 33.0. Platelets 100. Sodium 146 and potassium 3.6. BUN 34 and creatinine 1.86. PROBLEMS: 1. Acute renal failure. Most likely related to dehydration and kidney function is improving with intravenous (IV) fluid hydration. I recommend to continue with high hypotonic IV fluid until his oral intake is adequate. 2. Hypernatremia. Sodium level is slightly better today and I recommend to continue with half normal saline for at least another 24 hours. 3. Malnutrition. Patient is chronically malnourished. He is able to take nutrition by mouth now and would recommend to continue with assistance as patient has difficulty feeding himself. 4. Anemia. His anemia is mild and does not need any intervention.
--- NOTE | 2017-09-03 13:15 | REP ---
Portable chest, single AP view, the patient semi upright, 11:46 a.m.: Comparisons are 09/01/2017, 08/31/[address] of 08/31/2017. I suspect there is a small right apical pneumothorax. The density inferiorly in the right lung continues to increase in size, possibly an increasing right pleural effusion. The thoracic aorta is quite tortuous, unchanged. Cardiac size is normal. Left lung is clear. There is a pacemaker, unchanged. There is questionably a new pneumothorax inferolaterally on the left versus skin fold artifact. Impression: Small right apical pneumothorax. Increasing density in the right lung, possibly increasing fusion. Questionable new left pneumothorax versus skin fold artifact inferolaterally in the left hemithorax. These results are discussed by telephone with the patient's insurance marketing specialist, Dr. Parrish. Signed by Mehrdad Briscoe MD 09/03/2017 01:07 P
[2017-09-03 14:00] VITALS: BP 114/75
[2017-09-03] MEDS: WARFARIN SOD 5 MG TAB PO SCH (16:16)
--- NOTE | 2017-09-03 18:28 | IPN ---
DATE: 09/03/2017 Mr. Richards is a seen this afternoon on his bedside. He has been transferred out of ICU to regular medical floor. He has been doing well and currently not on any IV fluids. His oral intake has improved. He was admitted with severe dehydration and altered mentation. The patient also had hypernatremia due to dehydration, which has also improved. PHYSICAL EXAMINATION: Temperature 97.5 degrees Fahrenheit, heart rate 70 per minute and respiratory rate 18 per minute. Blood pressure 124/70 mmHg and oxygen saturation 97% on room air. Intake and output records from yesterday showed total intake 1352 and output 1425 mL. Head is atraumatic. Neck is supple and without jugular venous distention (JVD) or thyroid enlargement. Ears, nose and throat are unremarkable. Heart: Sounds are regular and lungs clear to auscultation. Abdomen: Soft and nontender and without palpable organomegaly. Bowel sounds are normal. Extremities have no cyanosis or clubbing. Today's labs show WBC count 6.6, hemoglobin 11.4 and hematocrit 34.2. Platelets 101. Sodium 145 and potassium 4.1. BUN 22, creatinine 1.34. PROBLEM: 1. Acute renal failure, improving nicely with hydration. At present, his oral intake has improved and he does not need IV fluid. I would suggest that nursing staff encourage with increased oral intake. 2. Hypernatremia. Sodium level has also corrected and improved to normal range. No need for further IV fluids, which has already been stopped. 3. Protein calorie malnutrition. This is chronic and the patient will need assistance with feeding. Nepro 1 can daily or twice a day can be added for nutritional support.
[2017-09-03 20:00] VITALS: BP 132/60
--- NOTE | 2017-09-03 20:38 | IPNPDOC ---
Text Note Date of Service The patient was seen on 09/03/17. NOTE Subjective: 87 years old male with PMH of chronic afib, HTN, vitamin D def, hypokalemia presented with fall and altered mentation. Patient seen and examined at bedside. Patient still mumbles today, called his yesterday, per her he has been confused at baseline and some day is better than others. Otherwise, he denies any chest pain, abdominal pain, any discomfort anywhere else. Her is planning on coming in to visit him this week. Objective: Vitals: (See below) General: Patient is a elderly male looked appropriate for his stated age laying comfortably in bed, AAOx3, not in apparent distress, with head elevated at 30 degrees HEENT: Normal cephalic atraumatic, Extraocular motion intact, mucosal membrane moist, neck supple, no neck lymphadenopathy Cardio: irregular heart beat, no murmurs Pulm: Reduced b/l, poor respiratory effort Abdomen: + bowel sounds, soft, none tender, none distended, no peritoneal signs , no ecchymosis, no masses that were palpable Ext: No edema, clubbing, or cynosis Skin: Warm and dry Neuro: Cranial Nerve 2 through 12 intact, No focal neurological deficit Labs ( See below) Most significantly: Assessment and Plan: Acute hydropneumothorax - s/p fall with multiple rib fractures - Dr. Parrish from pulmonology has been consulted, will follow her recommendation , no chest tube for now - c/w O2 Metabolic Encephalopathy - repeat CT - stated he was confused before but worse now - Sitter for prevent interrupting medical therapy and harming himself Acute renal failure 2/2 rhabdo and prerenal - FeNa <1 - Dr. Arevalo and Dr. Lui from nephrology has been consulted, will follow his recommendation, c/w IVF Rhabdo - IVF Hypernatremia 2/2 IVF and poor PO intake - resolved Electrolyte abnormalities with hypophosphatemia - repleted SIRS - ? RLL aspiration pneumonia on zosyn - negative urine culture Metabolic encephalopathy 2/2 to above - slight improvement - Patient does have baseline confusion Lactic acidosis 2/2 prerenal vs infection - improving Hx of afib not in RVR - c/w coumadin Bedbugs found on admission - contact precaution Mycotic nails - Possible inpatient vs. outpatient podiatry consultation - at this point stable, no signs of overt infection HTN - c/w home meds Chronic anemia - continue to monitor DVT prophylaxis: Coumadin to keep INR between 2 and 3 Fluid, Electrolytes, Nutrition: Level 2, nectar thickened liquid, no straws Code: Need to discuss with patient and his family Disposition: possible placement GME ATTESTATION My preceptor for this patient encounter was physically present in the building during the encounter and was fully available. As needed, all aspects of the patient interview, examination, medical decision making process, and medical care plan development were reviewed and approved by the preceptor. Preceptor is aware and concurs with the plan as stated in the body of this note and will attest to such by his/her cosignature. VS,Fishbone, I+O VS, Fishbone, I+O Laboratory Tests 09/03/17 05:43 Red Blood Count 3.79 L, Mean Corpuscular Volume 90.2, Mean Corpuscular Hemoglobin 30.1, Mean Corpuscular Hemoglobin Concent 33.3, Red Cell Distribution Width 15.9 H, Anion Gap 8 Vital Signs Date Time Temp Pulse Resp B/P (MAP) Pulse Ox O2 Delivery O2 Flow Rate FiO2 09/03/17 16:53 Room Air 09/03/17 14:00 98.6 61 20 114/75 (88) 100 09/01/17 17:57 2.0 I&O- Last 24 Hours up to 6 AM 09/04/17 05:59 Intake Total 1220 ml Balance 1220 ml XIMENA ANSARI DO Sep 03, 2017 20:38 JAMIA RAMÍREZ MD Sep 16, 2017 21:41
[2017-09-04 06:00] VITALS: BP 136/69
[2017-09-04 07:03] LABS: MEAN CORPUSCULAR HEMOGLOBIN 29.9 pg (27.0-33.0); MEAN CORPUSCULAR HGB CONC 33.1 g/dl (32.0-36.5); MEAN CORPUSCULAR VOLUME 90.6 fl (80.0-96.0); PLATELET COUNT, AUTOMATED 119 10^3/uL (150-450); RED CELL DISTRIBUTION WIDTH 15.8 % (11.5-14.5)
[2017-09-04 07:08] LABS: INR 1.8
[2017-09-04 07:10] LABS: ALBUMIN 2.5 GM/DL (3.2-5.2); ANION GAP 6 MEQ/L (8-16); BLOOD UREA NITROGEN 20 MG/DL (7-18); CALCIUM LEVEL 8.4 MG/DL (8.8-10.2); CARBON DIOXIDE LEVEL 29 MEQ/L (21-32); CHLORIDE LEVEL 107 MEQ/L (98-107); CREATININE FOR GFR 1.19 MG/DL (0.70-1.30); GLOMERULAR FILTRATION RATE > 60.0 (>35); GLUCOSE, FASTING 88 MG/DL (83-110); MAGNESIUM LEVEL 1.7 MG/DL (1.8-2.4); PHOSPHORUS LEVEL 2.3 MG/DL (2.5-4.9); POTASSIUM SERUM 4.1 MEQ/L (3.5-5.1); SODIUM LEVEL 142 MEQ/L (136-145)
[2017-09-04] MEDS ORDERED: MAG SULF 1GM/100ML (MAG RUN) 1 GM in APPROPRIATE DILUENT 1 EA IV ONE (07:30)
[2017-09-04] MEDS: ALBUTEROL SULFATE 2.5 MG/0.5 ML INH NEB SOLN NEB SCH ×4 (07:31→20:14)
[2017-09-04 07:33] VITALS: O2SAT 93
[2017-09-04] MEDS: DOCUSATE SODIUM 100 MG CAP PO SCH ×2 (08:07→21:00)
[2017-09-04] MEDS: NEUTRA-PHOS 1.25 GM PACKET PO SCH ×3 (10:15→21:21)
[2017-09-04 14:00] VITALS: BP 112/69
[2017-09-04] MEDS ORDERED: WARFARIN SOD 5 MG TAB PO ONE (17:00)
--- NOTE | 2017-09-04 17:18 | IPNPDOC ---
Text Note Date of Service The patient was seen on 09/04/17. NOTE Subjective: 87 years old male with PMH of chronic afib, HTN, vitamin D def, hypokalemia presented with fall and altered mentation. Patient seen and examined at bedside. Patient is very energetic and cooperative today, however he still doesn't answer questions appropriately. Otherwise, he denies any chest pain, abdominal pain, any discomfort anywhere else. Objective: Vitals: (See below) General: Patient is a elderly male looked appropriate for his stated age laying comfortably in bed, AAOx3, not in apparent distress, sitting up in chair HEENT: Normal cephalic atraumatic, Extraocular motion intact, mucosal membrane moist, neck supple, no neck lymphadenopathy Cardio: irregular heart beat, no murmurs Pulm: Reduced b/l, poor respiratory effort Abdomen: + bowel sounds, soft, none tender, none distended, no peritoneal signs , no ecchymosis, no masses that were palpable Ext: No edema, clubbing, or cynosis, mycotic nails Skin: Warm and dry Neuro: Cranial Nerve 2 through 12 intact, No focal neurological deficit Labs ( See below) Most significantly: Assessment and Plan: Traumatic Acute hydropneumothorax with rhabdomyolysis 2/2 fall - s/p fall with multiple rib fractures - Dr. Parrish from pulmonology has been consulted, will follow her recommendation , no chest tube for now - c/w O2 Acute metabolic encephalopathy - likely 2/2 worsening dementia - repeat CT on 09/03/17 showed small vessel ischemic disease, moderate volume loss - stated he was confused before but worse now - s/p sitter s/p Acute renal failure 2/2 rhabdo and prerenal - FeNa <1 - Dr. Arevalo and Dr. Lui from nephrology has been consulted, will follow his recommendation, c/w IVF Rhabdo - s/p IVF s/p Hypernatremia 2/2 IVF and poor PO intake - resolved s/p Electrolyte abnormalities with hypophosphatemia - repleted Normocytic anemia - Hg stable Thrombocytopenia - Stable without evidence of bleeding SIRS - ? RLL aspiration pneumonia on zosyn - negative urine culture s/p Lactic acidosis 2/2 prerenal vs infection - improving Hx of afib not in RVR - c/w coumadin Bedbugs found on admission - contact precaution Mycotic nails - Outpatient podiatry referral - at this point stable, no signs of overt infection HTN - c/w home meds DVT prophylaxis: Coumadin to keep INR between 2 and 3 Fluid, Electrolytes, Nutrition: Level 2, nectar thickened liquid, no straws Disposition: placement plans GME ATTESTATION My preceptor for this patient encounter was physically present in the building during the encounter and was fully available. As needed, all aspects of the patient interview, examination, medical decision making process, and medical care plan development were reviewed and approved by the preceptor. Preceptor is aware and concurs with the plan as stated in the body of this note and will attest to such by his/her cosignature. ATTENDING NOTE I, Frank Tapia, have both independently examined this patient as well as reviewed the documentation. I have discussed in detail with the resident the findings and plan of treatment as documented in the residents documentation. I will continue to follow the patient and offer further guidance to the patients care as necessary during this hospital stay. VS,Fishbone, I+O VS, Fishbone, I+O Laboratory Tests 09/04/17 06:23 Red Blood Count 3.94 L, Mean Corpuscular Volume 90.6, Mean Corpuscular Hemoglobin 29.9, Mean Corpuscular Hemoglobin Concent 33.1, Red Cell Distribution Width 15.8 H, Anion Gap 6 L Vital Signs Date Time Temp Pulse Resp B/P (MAP) Pulse Ox O2 Delivery O2 Flow Rate FiO2 09/04/17 14:00 99.1 77 20 112/69 (83) 96 Room Air 09/04/17 07:33 2.0 I&O- Last 24 Hours up to 6 AM 09/05/17 06:00 Intake Total 1180 ml Balance 1180 ml XIMENA ANSARI DO Sep 04, 2017 17:18 FRANK TAPIA MD Sep 04, 2017 18:35
[2017-09-04] MEDS: WARFARIN SOD 2.5 MG TAB PO SCH (17:20)
[2017-09-04 21:00] VITALS: O2SAT 94
[2017-09-04 22:00] VITALS: BP 127/72
--- NOTE | 2017-09-04 22:08 | IPN ---
DATE: 09/04/2017 Mr. Richards is seen this morning on his bedside. He is sitting in the chair at the time of my visit. He remains confused and disoriented however, is able to answer simple questions. He denies any nausea, vomiting, dyspnea or chest pain. PHYSICAL EXAMINATION: Temperature 97.5 degrees Fahrenheit, heart rate 70 per minute and respiratory rate 18 per minute. Blood pressure 136/69 mmHg and oxygen saturation 91%. Intake and output records are incomplete. His head is atraumatic. Neck is supple and without jugular venous distention (JVD) or thyroid enlargement. Heart: Sounds are regular. Lungs have mildly diminished breath sounds bilaterally. Abdomen: Soft and nontender. Extremities: Without cyanosis or clubbing. Neurologically, he is awake and able to answer simple questions. I am not aware of his baseline mentation. Today's labs show WBC count 8.0, hemoglobin 11.8 and hematocrit 35.7. Sodium 142 and potassium 4.1. BUN 20 and creatinine 1.19. PROBLEMS: 1. Acute renal failure on possible chronic kidney disease. The patient has significant improvement in his kidney function. At this point his oral intake is adequate and IV fluid has been stopped. 2. Hypernatremia. Sodium level has improved to normal range. His other electrolytes are also significantly improved. 3. Protein calorie malnutrition. The patient has been chronically malnourished. I suggest to provide him assistance with feeding. From a renal standpoint, kidney function has improved significantly and the patient is doing well. His oral intake is now adequate and electrolytes have improved. I do not feel that he needs regular nephrology followup at this point. I am signing off his case.
[2017-09-05 07:01] LABS: MEAN CORPUSCULAR HEMOGLOBIN 30.6 pg (27.0-33.0); MEAN CORPUSCULAR HGB CONC 33.3 g/dl (32.0-36.5); MEAN CORPUSCULAR VOLUME 91.8 fl (80.0-96.0); PLATELET COUNT, AUTOMATED 136 10^3/uL (150-450); WHITE BLOOD COUNT 8.7 10^3/uL (4.0-10.0)
[2017-09-05 07:11] LABS: ALBUMIN 2.6 GM/DL (3.2-5.2); CALCIUM LEVEL 8.6 MG/DL (8.8-10.2); CREATININE FOR GFR 1.57 MG/DL (0.70-1.30); GLOMERULAR FILTRATION RATE 44.9 (>35); PHOSPHORUS LEVEL 2.6 MG/DL (2.5-4.9); POTASSIUM SERUM 4.6 MEQ/L (3.5-5.1)
[2017-09-05 07:12] LABS: INR 1.97
[2017-09-05] MEDS: ALBUTEROL SULFATE 2.5 MG/0.5 ML INH NEB SOLN NEB SCH ×4 (07:16→20:36)
[2017-09-05] MEDS: NS 1,000 ML IV SCH ×2 (07:45→09:30)
[2017-09-05] MEDS: DOCUSATE SODIUM 100 MG CAP PO SCH ×2 (09:00→20:20)
[2017-09-05] MEDS: NEUTRA-PHOS 1.25 GM PACKET PO SCH ×3 (09:30→20:20)
--- NOTE | 2017-09-05 09:50 | REP ---
AP LATERAL CHEST: 09/05/2017. Clinical history: Right-sided hydropneumothorax follow-up. Comparison: 09/03/2017, 09/01/2017, 08/31/2017 portable chests. Findings: A dual lead pacer again seen with leads in the right antrum and right ventricle. Heart not enlarged. Quite tortuous ectatic aorta at the arch. Slightly deviated trachea towards the right but unchanged. No gross cardiomegaly. There is no pulmonary edema. Moderate sized right effusion and a small left effusion seen on the lateral view. There appears to be likely persistent apical hydropneumothorax with an air gap of about 19 mm, previously 31 mm on the 09/01/2017 exam, although very difficult to discern. I see no cecil edema. No dense consolidation. Compressive atelectasis or infiltrate in the right base. Bones show compression deformity at about T9. Grade 2 anterior wedging unchanged from the CT chest 08/31/2017, not acute based on that study. Impression: 1. Apical pneumothorax on the right representing hydropneumothorax; it is smaller than on the 09/01/2017 study, difficult to discern. 2. Dual lead pacer unchanged. No cardiomegaly. 3. Tortuous ectatic calcified aorta, unchanged. Signed by Nikunj Cruz MD 09/05/2017 01:28 P
--- NOTE | 2017-09-05 11:41 | IPNPDOC ---
Text Note Date of Service The patient was seen on 09/05/17. NOTE Subjective: 87 years old male with PMH of chronic A. fib, HTN, Vitamin D deficiency, who presented to the ER with a fall and altered mentation. Patient seen and examined at bedside. Patient is alert and cooperative, he answers questions, but has difficulty expressing himself. Otherwise, he denies any chest pain, abdominal pain, any discomfort anywhere else. Objective: Vitals: (See below) General: Patient is a elderly male looked appropriate for his stated age laying comfortably in bed, AAOx3, not in apparent distress, sitting up in chair HEENT: Normal cephalic atraumatic, Extraocular motion intact, mucosal membrane moist, neck supple, no neck lymphadenopathy Cardio: irregular heart beat, no murmurs Pulm: Reduced b/l, poor respiratory effort Abdomen: + bowel sounds, soft, none tender, none distended, no peritoneal signs , no ecchymosis, no masses that were palpable Ext: No edema, clubbing, or cyanosis, mycotic nails Skin: Warm and dry Neuro: Cranial Nerve 2 through 12 intact, No focal neurological deficit Assessment and Plan: Mechanical fall resulting in acute hydropneumothorax / fractured ribs - Clinically does not complain of any pain - Physical unrevealing - CT chest 08/31: moderate right pneumothorax, small right pleural effusion - CXR 09/05/17 smaller apical pneumothorax compared to 09/01/17 - c/w supplemental oxygen - No plans for chest tube given minimal size - Dr. Parrish (Pulmonology) consulted; Appreciate their input Rhabdomyolysis - likely 2/2 mechanical fall - CK trended down Acute metabolic encephalopathy - likely 2/2 worsening dementia and rhabdomyolysis - Clinically improved - Repeat CT 09/03: small vessel ischemic disease, moderate volume loss - s/p sitter s/p Acute renal failure 2/2 prerenal, possibly intra-renal 2/2 rhabdomyolysis - FeNa <1 - Dr. Arevalo / Dr. Lui (Nephrology) consulted; Appreciate their input - signed off - Mild elevation today - Will restart IV fluid hydration s/p Hypernatremia 2/2 IVF and Poor PO intake s/p Electrolyte abnormalities Normocytic anemia - Hg stable Thrombocytopenia - Stable - No evidence of bleeding Suspected Aspiration PNA - CXR 08/31: Questionable opacity on RLL - s/p Zosyn s/p Lactic acidosis Hx of afib not in RVR - INR target of 2-3 - c/w Coumadin Bedbugs found on admission - contact precaution Mycotic nails - Outpatient podiatry referral - at this point stable, no signs of overt infection HTN - c/w home meds DVT prophylaxis - on full anticoagulation with Coumadin Fluid, Electrolytes, Nutrition: Level 2, nectar thickened liquid, no straws Disposition: - Placement plans GME ATTESTATION My preceptor for this patient encounter was physically present in the building during the encounter and was fully available. As needed, all aspects of the patient interview, examination, medical decision making process, and medical care plan development were reviewed and approved by the preceptor. Preceptor is aware and concurs with the plan as stated in the body of this note and will attest to such by his/her cosignature. ATTENDING NOTE I, Frank Tapia, have both independently examined this patient as well as reviewed the documentation. I have discussed in detail with the resident the findings and plan of treatment as documented in the residents documentation. I will continue to follow the patient and offer further guidance to the patients care as necessary during this hospital stay. VS,Fishbone, I+O VS, Fishbone, I+O Laboratory Tests 09/05/17 06:30 Red Blood Count 3.89 L, Mean Corpuscular Volume 91.8, Mean Corpuscular Hemoglobin 30.6, Mean Corpuscular Hemoglobin Concent 33.3, Red Cell Distribution Width 16.0 H, Anion Gap 6 L Vital Signs Date Time Temp Pulse Resp B/P (MAP) Pulse Ox O2 Delivery O2 Flow Rate FiO2 09/05/17 09:34 Room Air 09/04/17 22:00 98.2 83 18 127/72 (90) 93 09/04/17 21:00 2.0 I&O- Last 24 Hours up to 6 AM 09/06/17 06:00 Intake Total 480 ml Balance 480 ml XIMENA ANSARI DO Sep 05, 2017 11:41 FRANK TAPIA MD Sep 05, 2017 15:55
[2017-09-05 14:00] VITALS: BP 119/63
--- NOTE | 2017-09-05 16:15 | IPN ---
DATE: 09/05/2017 Patient is confused. He responds with "yes" to every question. He appears to be tolerating by mouth food and is ambulating. He does not appear to be in any distress and is currently resting comfortably in chair. VITAL SIGNS: Temperature 98.2, pulse 83, respiratory rate 18, blood pressure 127/72. Patient is saturating at 93% on room air. LABORATORY DATA: White blood cells 8.7, hemoglobin 11.9, hematocrit 35.7, platelets 136. Sodium 141, potassium 4.6, chloride 106, carbon dioxide 29, BUN 29, creatinine 1.57. PHYSICAL EXAMINATION: GENERAL: Patient is chronically ill appearing. ENT: Mouth is pink, moist. No deviation. There is no erythema. Patient has healthy gums. Oropharynx is moist. There is no tonsillar exudate. Nonerythematous. NECK: Supple. There is no stridor. No bruits detected. Thyroid is midline. No thyromegaly. RESPIRATION: Symmetric. Patient does not appear to be using accessory muscles. Patient is rested. Lung sounds are dull to percussion. There is no rhonchi. No diminished breath sounds. No wheeze detected. No rales. No rubs. CARDIOVASCULAR: S1, S2 are present. Regular rate and rhythm. No murmurs, no rubs , no gallops detected. GASTROINTESTINAL: No palpable mass. No hepatosplenomegaly. MUSCULOSKELETAL: Patient appears normal without musculoskeletal atrophy. EXTREMITIES: No clubbing. No discoloration noted. SKIN: Normal. No edema. PSYCHIATRIC: Patient is confused. He is alert, but he is not oriented to person or place. Mood is appropriate. ASSESSMENT: An 87-year-old gentleman who presented with dehydration and hemothorax from rib fractures. . At this point, patient has been rehydrated. His kidney function has returned to normal. Nephrology has signed off on patient. Chest X-Ray: I have reviewed the xray and the report Impression: 1. Apical pneumothorax on the right representing hydropneumothorax; it is smaller than on the 09/01/2017 study, 2. Dual lead pacer unchanged. No cardiomegaly. 3. Tortuous ectatic calcified aorta, unchanged. PLAN: 1. Traumatic pneumothorax. No pulmonic intervention available at this time. 2. Dementia. My preceptor for this patient encounter was Dr. Jayden Parrish. The preceptor was physically present in the room during the encounter and was fully available as needed. All aspects of the patient interview, examination, medical decision making process, and medical care plan development were reviewed and approved by the preceptor. The preceptor is aware and concurs with the plan as stated in the body of this note and will attest to such by his/her co-signature. I, Jayden Parrish, conducted an independent history and physical. I agree with the plan as outlined above, there continues to be slow improvement in the pneumothorax without need for chest tube placement. MTDD
[2017-09-05] MEDS: WARFARIN SOD 5 MG TAB PO SCH (16:57)
[2017-09-05 22:00] VITALS: BP 129/71
[2017-09-06 06:00] VITALS: BP 132/85
[2017-09-06 07:02] LABS: MEAN CORPUSCULAR HEMOGLOBIN 30.6 pg (27.0-33.0); MEAN CORPUSCULAR HGB CONC 33.2 g/dl (32.0-36.5); MEAN CORPUSCULAR VOLUME 92.2 fl (80.0-96.0); PLATELET COUNT, AUTOMATED 124 10^3/uL (150-450); RED CELL DISTRIBUTION WIDTH 16.2 % (11.5-14.5); WHITE BLOOD COUNT 7.1 10^3/uL (4.0-10.0)
[2017-09-06 07:13] LABS: INR 2.77
[2017-09-06 07:17] LABS: ALBUMIN 2.3 GM/DL (3.2-5.2); CALCIUM LEVEL 8.3 MG/DL (8.8-10.2); CREATININE FOR GFR 1.3 MG/DL (0.70-1.30); GLOMERULAR FILTRATION RATE 55.9 (>35); MAGNESIUM LEVEL 1.8 MG/DL (1.8-2.4); PHOSPHORUS LEVEL 2.9 MG/DL (2.5-4.9); POTASSIUM SERUM 4.6 MEQ/L (3.5-5.1)
[2017-09-06] MEDS: ALBUTEROL SULFATE 2.5 MG/0.5 ML INH NEB SOLN NEB SCH ×4 (07:35→20:12)
[2017-09-06] MEDS: DOCUSATE SODIUM 100 MG CAP PO SCH ×2 (09:00→20:27)
[2017-09-06] MEDS: NEUTRA-PHOS 1.25 GM PACKET PO SCH ×3 (09:01→20:27)
[2017-09-06] MEDS ORDERED: MOM 30ML SUSPENSION UDC PO PRN (11:45)
[2017-09-06] MEDS ORDERED: FLEET ENEMA PR PRN (11:45)
[2017-09-06 14:00] VITALS: BP 120/77
[2017-09-06] MEDS: WARFARIN SOD 2.5 MG TAB PO SCH (16:15)
--- NOTE | 2017-09-06 17:35 | IPNPDOC ---
Text Note Date of Service The patient was seen on 09/06/17. NOTE Subjective: 87 years old male with PMH of chronic A. fib, HTN, Vitamin D deficiency, who presented to the ER with a fall and altered mentation. Patient seen and examined at bedside. Patient is the same as yesterday. Stated he doesn't have any discomfort anywhere. Otherwise, he denies any chest pain, abdominal pain. Objective: Vitals: (See below) General: Patient is a elderly male looked appropriate for his stated age laying comfortably in bed, AAOx3, not in apparent distress, sitting up in chair HEENT: Normal cephalic atraumatic, Extraocular motion intact, mucosal membrane moist, neck supple, no neck lymphadenopathy Cardio: irregular heart beat, no murmurs Pulm: Reduced b/l, poor respiratory effort Abdomen: + bowel sounds, soft, none tender, none distended, no peritoneal signs , no ecchymosis, no masses that were palpable Ext: No edema, clubbing, or cyanosis, mycotic nails Skin: Warm and dry Neuro: Cranial Nerve 2 through 12 intact, No focal neurological deficit Assessment and Plan: Mechanical fall resulting in acute hydropneumothorax / fractured ribs - Clinically does not complain of any pain - Physical unrevealing - CT chest 08/31: moderate right pneumothorax, small right pleural effusion - CXR 09/05/17 smaller apical pneumothorax compared to 09/01/17 - c/w supplemental oxygen - No plans for chest tube given minimal size - Dr. Parrish (Pulmonology) consulted; Appreciate their input - Will downgrade patient to ALC today Rhabdomyolysis - likely 2/2 mechanical fall - CK trended down Acute metabolic encephalopathy - likely 2/2 worsening dementia and rhabdomyolysis - Clinically improved - Repeat CT 09/03: small vessel ischemic disease, moderate volume loss - s/p sitter s/p Acute renal failure 2/2 prerenal, possibly intra-renal 2/2 rhabdomyolysis - FeNa <1 - Dr. Arevalo / Dr. Lui (Nephrology) consulted; Appreciate their input - signed off s/p Hypernatremia 2/2 IVF and Poor PO intake s/p Electrolyte abnormalities Normocytic anemia - Hg stable Thrombocytopenia - Stable - No evidence of bleeding Suspected Aspiration PNA - CXR 08/31: Questionable opacity on RLL - s/p Zosyn s/p Lactic acidosis Hx of afib not in RVR - INR target of 2-3 - c/w Coumadin Bedbugs found on admission - contact precaution Mycotic nails - Outpatient podiatry referral - at this point stable, no signs of overt infection HTN - c/w home meds DVT prophylaxis - on full anticoagulation with Coumadin Fluid, Electrolytes, Nutrition: Pureed honey thickened liquids Disposition: - Placement plans, transfer to [facility] status GME ATTESTATION My preceptor for this patient encounter was physically present in the building during the encounter and was fully available. As needed, all aspects of the patient interview, examination, medical decision making process, and medical care plan development were reviewed and approved by the preceptor. Preceptor is aware and concurs with the plan as stated in the body of this note and will attest to such by his/her cosignature. VS,Fishbone, I+O VS, Fishbone, I+O Laboratory Tests 09/06/17 06:27 Red Blood Count 3.46 L, Mean Corpuscular Volume 92.2, Mean Corpuscular Hemoglobin 30.6, Mean Corpuscular Hemoglobin Concent 33.2, Red Cell Distribution Width 16.2 H, Anion Gap 7 L Vital Signs Date Time Temp Pulse Resp B/P (MAP) Pulse Ox O2 Delivery O2 Flow Rate FiO2 09/06/17 14:00 98.1 99 16 120/77 (91) 96 Room Air 09/04/17 21:00 2.0 I&O- Last 24 Hours up to 6 AM 09/07/17 06:00 Intake Total 1480 ml Balance 1480 ml XIMENA ANSARI DO Sep 06, 2017 17:35
[2017-09-06 22:00] VITALS: BP 123/76
[2017-09-07 06:00] VITALS: BP 147/73
[2017-09-07] MEDS: ALBUTEROL SULFATE 2.5 MG/0.5 ML INH NEB SOLN NEB SCH ×4 (07:07→19:43)
[2017-09-07 07:08] LABS: MEAN CORPUSCULAR HEMOGLOBIN 30.4 pg (27.0-33.0); MEAN CORPUSCULAR HGB CONC 33.1 g/dl (32.0-36.5); MEAN CORPUSCULAR VOLUME 91.7 fl (80.0-96.0); PLATELET COUNT, AUTOMATED 157 10^3/uL (150-450); RED CELL DISTRIBUTION WIDTH 16.2 % (11.5-14.5); WHITE BLOOD COUNT 8.1 10^3/uL (4.0-10.0)
[2017-09-07 07:18] LABS: INR 2.28
[2017-09-07 07:32] LABS: CALCIUM LEVEL 8.6 MG/DL (8.8-10.2); CREATININE FOR GFR 1.27 MG/DL (0.70-1.30); GLOMERULAR FILTRATION RATE 57.4 (>35); MAGNESIUM LEVEL 1.9 MG/DL (1.8-2.4); PHOSPHORUS LEVEL 2.9 MG/DL (2.5-4.9); POTASSIUM SERUM 4.7 MEQ/L (3.5-5.1)
[2017-09-07] MEDS: DOCUSATE SODIUM 100 MG CAP PO SCH ×2 (09:00→19:58)
[2017-09-07] MEDS: NEUTRA-PHOS 1.25 GM PACKET PO SCH ×3 (10:21→19:58)
[2017-09-07] MEDS: WARFARIN SOD 2.5 MG TAB PO SCH (16:51)
[2017-09-08 00:10] LABS: ACETYLCHOLINE RCPTOR BLOCK AB 5 % (0-25); ACETYLCHOLINE RCPTOR MODULATIN <12 % (0-20)
[2017-09-08 05:00] VITALS: BP 146/86
[2017-09-08 07:03] LABS: INR 1.94
[2017-09-08] MEDS: ALBUTEROL SULFATE 2.5 MG/0.5 ML INH NEB SOLN NEB SCH ×4 (07:10→20:04)
[2017-09-08] MEDS: NEUTRA-PHOS 1.25 GM PACKET PO SCH ×3 (09:59→20:12)
[2017-09-08] MEDS: DOCUSATE SODIUM 100 MG CAP PO SCH ×2 (09:59→20:10)
[2017-09-08 16:35] VITALS: BP 146/86
[2017-09-08] MEDS: WARFARIN SOD 2.5 MG TAB PO SCH (18:25)
[2017-09-09 06:00] VITALS: BP 143/83
[2017-09-09 06:10] LABS: MEAN CORPUSCULAR HEMOGLOBIN 30.4 pg (27.0-33.0); MEAN CORPUSCULAR HGB CONC 33.3 g/dl (32.0-36.5); MEAN CORPUSCULAR VOLUME 91.2 fl (80.0-96.0); PLATELET COUNT, AUTOMATED 168 10^3/uL (150-450); RED CELL DISTRIBUTION WIDTH 16.7 % (11.5-14.5); WHITE BLOOD COUNT 6.8 10^3/uL (4.0-10.0)
[2017-09-09 06:21] LABS: INR 1.66
[2017-09-09 06:23] LABS: ANION GAP 5 MEQ/L (8-16); BLOOD UREA NITROGEN 27 MG/DL (7-18); CALCIUM LEVEL 8.8 MG/DL (8.8-10.2); CARBON DIOXIDE LEVEL 31 MEQ/L (21-32); CHLORIDE LEVEL 105 MEQ/L (98-107); CREATININE FOR GFR 1.18 MG/DL (0.70-1.30); GLOMERULAR FILTRATION RATE > 60.0 (>35); GLUCOSE, FASTING 89 MG/DL (83-110); POTASSIUM SERUM 4.8 MEQ/L (3.5-5.1); SODIUM LEVEL 141 MEQ/L (136-145)
[2017-09-09] MEDS: ALBUTEROL SULFATE 2.5 MG/0.5 ML INH NEB SOLN NEB SCH ×4 (07:13→20:11)
[2017-09-09] MEDS: NEUTRA-PHOS 1.25 GM PACKET PO SCH ×3 (09:08→22:08)
[2017-09-09] MEDS: DOCUSATE SODIUM 100 MG CAP PO SCH ×2 (09:08→22:08)
[2017-09-09] MEDS: WARFARIN SOD 2.5 MG TAB PO SCH (18:01)
[2017-09-10 06:00] VITALS: BP 114/63
[2017-09-10 07:34] LABS: BASO # 0.1 10^3/uL (0.0-0.2); BASO % 0.7 % (0.0-1.0); EOS # 0.4 10^3/uL (0.0-0.50); IMMATURE GRANULOCYTE % 0.3 % (0-0); MEAN CORPUSCULAR HEMOGLOBIN 30.3 pg (27.0-33.0); MEAN CORPUSCULAR HGB CONC 33.2 g/dl (32.0-36.5); MEAN CORPUSCULAR VOLUME 91.3 fl (80.0-96.0); MONO # 0.7 10^3/uL (0.0-0.8); MONO % 9.6 % (0.0-5.0); NEUTROPHILS # 5.4 10^3/uL (1.8-7.7); NEUTROPHILS % 71.4 % (36.0-66.0); PLATELET COUNT, AUTOMATED 170 10^3/uL (150-450); RED CELL DISTRIBUTION WIDTH 16.5 % (11.5-14.5); WHITE BLOOD COUNT 7.6 10^3/uL (4.0-10.0)
[2017-09-10] MEDS: ALBUTEROL SULFATE 2.5 MG/0.5 ML INH NEB SOLN NEB SCH ×4 (08:00→19:57)
[2017-09-10 08:04] LABS: ALBUMIN 2.6 GM/DL (3.2-5.2); ALBUMIN/GLOBULIN RATIO 0.93 (1.00-1.93); ALKALINE PHOSPHATASE 94 U/L (45-117); ALT/SGPT 42 U/L (12-78); ANION GAP 5 MEQ/L (8-16); AST/SGOT 28 U/L (7-37); BILIRUBIN,TOTAL 0.6 MG/DL (0.2-1.0); BLOOD UREA NITROGEN 26 MG/DL (7-18); CALCIUM LEVEL 8.3 MG/DL (8.8-10.2); CARBON DIOXIDE LEVEL 31 MEQ/L (21-32); CHLORIDE LEVEL 107 MEQ/L (98-107); CREATININE FOR GFR 1.19 MG/DL (0.70-1.30); GLOMERULAR FILTRATION RATE > 60.0 (>35); GLUCOSE, FASTING 84 MG/DL (83-110); MAGNESIUM LEVEL 2.2 MG/DL (1.8-2.4); POTASSIUM SERUM 4.6 MEQ/L (3.5-5.1); SODIUM LEVEL 143 MEQ/L (136-145); TOTAL PROTEIN 5.4 GM/DL (6.4-8.2)
[2017-09-10 09:00] VITALS: BP 112/62
[2017-09-10 09:03] LABS: INR 1.49
[2017-09-10] MEDS: NEUTRA-PHOS 1.25 GM PACKET PO SCH ×3 (09:54→21:48)
[2017-09-10] MEDS: DOCUSATE SODIUM 100 MG CAP PO SCH ×2 (09:54→21:48)
[2017-09-10 14:00] VITALS: BP 120/83
[2017-09-10] MEDS ORDERED: WARFARIN SOD 4 MG TAB PO SCH (17:00)
[2017-09-11 06:00] VITALS: BP 157/85
[2017-09-11 06:40] LABS: MEAN CORPUSCULAR HEMOGLOBIN 29.9 pg (27.0-33.0); MEAN CORPUSCULAR VOLUME 90.7 fl (80.0-96.0); PLATELET COUNT, AUTOMATED 157 10^3/uL (150-450); RED CELL DISTRIBUTION WIDTH 16.8 % (11.5-14.5); WHITE BLOOD COUNT 7.8 10^3/uL (4.0-10.0)
[2017-09-11 06:49] LABS: INR 2.45
[2017-09-11 07:18] LABS: CALCIUM LEVEL 8.6 MG/DL (8.8-10.2); CREATININE FOR GFR 1.38 MG/DL (0.70-1.30); GLOMERULAR FILTRATION RATE 52.1 (>35)
[2017-09-11] MEDS: ALBUTEROL SULFATE 2.5 MG/0.5 ML INH NEB SOLN NEB SCH ×4 (07:28→20:00)
[2017-09-11] MEDS: NEUTRA-PHOS 1.25 GM PACKET PO SCH ×3 (08:48→22:21)
[2017-09-11] MEDS: DOCUSATE SODIUM 100 MG CAP PO SCH ×2 (08:48→22:21)
--- NOTE | 2017-09-11 12:50 | IPN ---
DATE: 09/11/2017 Patient is seen and examined at the bedside. Chart has been reviewed. He has no complaints of chest pain, pressure, tightness, or shortness of breath. No issues per nursing. Vital signs: Temperature 98.2, pulse 79, respiratory rate 18, blood pressure 157/85, 94 % on room air. Generally, patient is awake, alert and oriented to person, answers questions appropriately. Lungs are clear to auscultation. No wheezing, rales or rhonchi. Heart S1 and S2, sinus rhythm. Abdomen is soft, nontender, nondistended. Positive bowel sounds. Extremities, no clubbing, cyanosis, or pitting edema. ASSESSMENT/PLAN: 87-year-old with history of atrial fibrillation, hypertension, vitamin D deficiency, with fall and altered mental status. IMPRESSION: Mechanical fall resulting in acute hydropneumothorax, fractured ribs. Does not complain of any pain. CT chest showed moderate right pneumothorax, small right pleural effusion. No plans for chest tube with repeat chest x-ray on 09/05 with smaller apical pneumothorax per Dr. Parrish. Patient is currently ALC. Rhabdomyolysis resolved. Acute metabolic encephalopathy due to dementia and rhabdomyolysis. Acute renal failure due to rhabdomyolysis. Dr. Lui has been consulted. Hyponatremia due to dehydration. Decreased intake. Normocytic anemia. Stable. Thrombocytopenia. No bleeding. Aspiration pneumonia. Questionable right lower lobe opacity status post Zosyn. History of atrial fibrillation not in rapid ventricular response (RVR). INR target 2-3. Reduce Coumadin dose today. MTDD
[2017-09-11] MEDS ORDERED: WARFARIN SOD 2.5 MG TAB PO SCH (17:00)
[2017-09-11 22:00] VITALS: BP 106/60
[2017-09-12 06:00] VITALS: BP 147/70
[2017-09-12 07:03] LABS: INR 1.33
[2017-09-12] MEDS: ALBUTEROL SULFATE 2.5 MG/0.5 ML INH NEB SOLN NEB SCH ×4 (07:13→19:55)
[2017-09-12] MEDS: DOCUSATE SODIUM 100 MG CAP PO SCH ×2 (09:48→19:40)
[2017-09-12] MEDS: NEUTRA-PHOS 1.25 GM PACKET PO SCH ×3 (09:48→19:40)
[2017-09-12] MEDS ORDERED: WARFARIN SOD 5 MG TAB PO SCH (17:00)
[2017-09-13 06:00] VITALS: BP 131/76
[2017-09-13 06:37] LABS: MEAN CORPUSCULAR HEMOGLOBIN 30.3 pg (27.0-33.0); MEAN CORPUSCULAR HGB CONC 32.7 g/dl (32.0-36.5); MEAN CORPUSCULAR VOLUME 92.7 fl (80.0-96.0); PLATELET COUNT, AUTOMATED 142 10^3/uL (150-450); RED CELL DISTRIBUTION WIDTH 16.8 % (11.5-14.5); WHITE BLOOD COUNT 6.9 10^3/uL (4.0-10.0)
[2017-09-13 06:55] LABS: INR 1.29
[2017-09-13 06:56] LABS: CALCIUM LEVEL 8.5 MG/DL (8.8-10.2); CREATININE FOR GFR 1.35 MG/DL (0.70-1.30); GLOMERULAR FILTRATION RATE 53.5 (>35); POTASSIUM SERUM 4.7 MEQ/L (3.5-5.1)
[2017-09-13] MEDS: ALBUTEROL SULFATE 2.5 MG/0.5 ML INH NEB SOLN NEB SCH ×4 (07:28→19:58)
[2017-09-13] MEDS: DOCUSATE SODIUM 100 MG CAP PO SCH ×2 (08:57→22:31)
[2017-09-13] MEDS: NEUTRA-PHOS 1.25 GM PACKET PO SCH ×3 (08:57→22:31)
[2017-09-13] MEDS ORDERED: CORE6.25 PO (15:01)
[2017-09-13] MEDS ORDERED: WARFARIN SOD 5 MG TAB PO ONE (17:00)
[2017-09-13] MEDS: CARVedilol 6.25 MG TAB PO SCH (21:00)
[2017-09-14 06:00] VITALS: BP 133/66
[2017-09-14 06:55] LABS: INR 1.37
[2017-09-14] MEDS: ALBUTEROL SULFATE 2.5 MG/0.5 ML INH NEB SOLN NEB SCH (07:04)
[2017-09-14] MEDS ORDERED: BACT2OIN10 TOP (08:00)
[2017-09-14 08:02] VITALS: BP 133/66
[2017-09-14] MEDS: DOCUSATE SODIUM 100 MG CAP PO SCH (08:02)
[2017-09-14] MEDS: CARVedilol 6.25 MG TAB PO SCH (08:02)
[2017-09-14] MEDS: NEUTRA-PHOS 1.25 GM PACKET PO SCH (08:02)
--- NOTE | 2017-09-14 15:42 | DSES ---
DATE OF ADMISSION: 08/31/2017 DATE OF DISCHARGE: 09/14/2017 Patient was changed to alternative level of care (ALC) status on 09/06/2017. CONSULTANTS DURING THIS ADMISSION: Dr. Arevalo, nephrology, Dr. Jayden Parrish, pulmonology. PRIMARY DISCHARGE DIAGNOSES: 1. Mechanical fall. 2. Acute hydropneumothorax. 3. Fractured ribs. 4. Rhabdomyolysis. 5. Acute renal failure secondary to rhabdomyolysis. 6. Acute metabolic encephalopathy due to rhabdomyolysis. 7. Dementia. 8. Hyponatremia due to dehydration. 9. Normocytic anemia. 10. Thrombocytopenia. 11. Aspiration pneumonia, right lower lobe. 12. Multiple lower extremity scabs secondary to recent bed bug infestation at home. 13. Atrial fibrillation status post pacemaker, on chronic Coumadin. 14. Chronic malnourishment with protein calorie malnutrition with hypoalbuminemia. 15. Ascending aortic aneurysm, measuring 4.3 cm. 16. Emphysema. DISCHARGE MEDICATIONS: - Coreg 6.25 twice a day - mupirocin topically twice a day to lower extremity lesions - albuterol 2.5 inhaled four times a day as needed - atorvastatin 40 at bedtime - vitamin D 50,000 units weekly - warfarin 5 mg and 2.5 mg, alternating doses FOLLOWUP ISSUES: Check INR to therapeutic of 2-3. HOSPITAL COURSE: This is an 87-year-old male who was brought to the emergency room due to confusion. He was found at home for an unknown period of time on the floor, lethargic, unable to get up. Was found to have bed bugs on arrival in the emergency room with several lesions on lower extremities, which were scabbed. Patient was really dehydrated with volume depletion, acute renal failure, hyperkalemia, and rhabdomyolysis, creatine phosphokinase (CPK) of 969, and was oliguric with lactic acidosis. Patient was found to have aspiration pneumonia, treated with intravenous Zosyn, renal dosing. IV fluid were given, D5 half-normal 80 mL an hour. Coreg and amlodipine were discontinued due to low blood pressure. He did get a dose of Kayexalate for severe hyperkalemia, and Coumadin was dosed according to his home regimen for his history of atrial fibrillation, status post pacemaker. [employer] Let Off Operator, Dr. Arevalo, and Dr. Lui, continually hydrated him until the creatinine was back to his baseline. Hyperkalemia resolved. Dr. Parrish was consulted due to pneumothorax. Patient did not require any intervention. Repeat imaging studies showed resolution of the hydropneumothorax. With completion of antibiotics and intravenous fluids, patient improved. White count improved from 13,000 to 6.9. He remained afebrile throughout the entire admission. Microbiology showed urine culture being negative with no growth. Creatinine improved from admission creatinine of 4.2 to discharge creatinine of 1.35. We have encouraged oral intake as outpatient. LABORATORY DATA ON DISCHARGE: White count of 6.9, hemoglobin 10, hematocrit 31, platelet count 142. Sodium 142, potassium 4.7, chloride 108, bicarbonate 29, BUN 31, creatinine 1.35, glucose of 88, INR is 1.37. Urine culture August 31: No growth. IMAGING STUDIES: CT of the head August 31: Age-appropriate cerebellar and cerebral atrophy. Mild chronic microvascular disease. No evidence of acute intracranial pathology. Chest CT 08/31/2017: Moderate right pneumothorax. Aneurysmal ascending aorta measured 4.3 cm. Atelectasis of the right lung. Bilateral apical emphysema. Repeat chest x-ray 09/05/2017: Apical pneumothorax on the right, representing hydropneumothorax. Is smaller than on September 01 and difficult to discern. Dual-lead pacer unchanged. No cardiomegaly. TIME SPENT ON DISCHARGE: 30 minutes.
== END 2017-09-14 09:25 | disposition home or self-care (01) | DRG 963 ==
LOC: EDBD 01:00 → M ED 01:00 → M ED INP 03:23 → M ICU 04:50 → M MS5PR 09-02 15:54
PROVIDERS: ADMIT Hospitalist; ATTEND General Practice
DX: S27.0XXA Traumatic pneumothorax, initial encounter (principal); T79.6XXA Traumatic ischemia of muscle, initial encounter; G93.41 Metabolic encephalopathy; J69.0 Pneumonitis due to inhalation of food and vomit; N17.9 Acute kidney failure, unspecified; E87.2 Acidosis; J90 Pleural effusion, not elsewhere classified; E87.0 Hyperosmolality and hypernatremia; S22.41XA Multiple fractures of ribs, right side, initial encounter for closed fracture; E46 Unspecified protein-calorie malnutrition; E87.1 Hypo-osmolality and hyponatremia; E87.5 Hyperkalemia; I71.4 Abdominal aortic aneurysm, without rupture; I48.2 Chronic atrial fibrillation; Z95.0 Presence of cardiac pacemaker; D69.6 Thrombocytopenia, unspecified; Z79.01 Long term (current) use of anticoagulants; D64.9 Anemia, unspecified; F03.90 Unspecified dementia, unspecified severity, without behavioral disturbance, psychotic disturbance, mood disturbance, and anxiety; J43.9 Emphysema, unspecified; E55.9 Vitamin D deficiency, unspecified; W18.30XA Fall on same level, unspecified, initial encounter; Y92.009 Unspecified place in unspecified non-institutional (private) residence as the place of occurrence of the external cause; Z79.899 Other long term (current) drug therapy